=== PATIENT | male | born 1950 | race Caucasian/White ===

== ENCOUNTER → 2021-03-21 17:17 | Outpatient (CLI) | payer OTHER, SELFPAY | PROVIDERS: Visit Provider Nurse Practitioner | DX: U07.1 COVID-19 (principal) | CPT/HCPCS: C9803; U0003; U0005 ==

== ENCOUNTER → 2021-03-26 08:52 | Outpatient (CLI) | payer OTHER, SELFPAY ==
[2021-03-26] VITALS (9 sets, daily range): BP systolic 108–130; BP diastolic 59–73; PULSE 56–68; RESP 18; O2SAT 94–98
== END ==
PROVIDERS: Visit Provider Internal Medicine
DX: U07.1 COVID-19 (principal); Z23 Encounter for immunization
CPT/HCPCS: 96365

== ENCOUNTER 2024-11-30 12:54 | Outpatient (CLI) | payer MEDICARE, BC, SELFPAY ==
--- OUTSIDE RECORDS SUMMARY | 2024-10-20 13:00 | XMS_ITS | Encounter Summary ---
Author Organization [employer] ([place], [place], [place], [place]) Address [address] [place] [address] Care Team Providers Care Commercial Finance Manager Name Role Phone Unavailable Primary Care Provider Unavailabl e Reason for Visit * Speech Therapy (Routine) - Authorized Specialty Diagnoses / Procedures Referred By Contac t Referred To Contact Speech Pathology / Speech Therapy Diagnoses Post concussion syndrome Ivette Palacios, DO [address] [place], [place] [id number] Phone: tel: fax: Katy Dale, CCC-STAFFING ASSOCIATE Referral ID Status Reason Start Date Expiration Date V isits Requested Visits Authorized [id number] Authorized 08/31/2024 09/11/2025 99 99 Encounter Details Date Type Department Care Team (Late st Contact Info) Description 10/20/2024 1:00 PM EDT Treatment [facility] Speech Language Pathology - [facility] [address] [place] [address] [phone] Ivette Palacios, DO [address] [place] [address] Katy Dale, CCC-STAFFING ASSOCIATE Post concussion syndrome Social History Tobacco Use Types Packs/Day Years Used Date Smoking Tobacco: Never Assessed Food Insecurity Answer Date Recorded Food run out past 12 months Not on file 06/29 Food did not last past 12 months Not on file 07/21/2023 Employment Answer Date Recorded Help finding and keeping a job Not on file 0 07/21/2023 Family and Community Support Answer Ravin e Recorded Help with Day to Day Activities Not on file 07/21/2023 Feeling Lonely or Isolated Not on file 07/20 Educational Attainment Answer Date Eder rded Speak language other than Uzbek at home Not on file 07/21/2023 Want help with school or training Not on file 07/21/2023 Substance Use Answer Date Recorded Used prescription meds for non-medical reasons N ot on file 07/21/2023 Used illegal drugs past 12 months Not on file 07/21/2023 Sex and Gender Information Value Date Recorded Sex Assigned at Not on file Legal Sex Male 10:54 AM CDT Gender Identity Not on file Sexual Orientation Not on file documented as of this encounter Progress Notes * Katy Dale CCC-STAFFING ASSOCIATE - 10/20/2024 1:00 PM EDT Images from the original note were not included. Speech Therapy Progress Note Outpatient Daily Treatment Note Cognition Patient Name:Arturo Corbin Referring MD:Ivette Palacios,* Date of :1950 Age: 74 y.o. Today: 10/20/2024 Time in/out:[id number] Length of Treatment: 45 Treatment Session Number: Pain: 3 via 0-10 verbal Subjective Arrived late for appointment. Called to alert STAFFING ASSOCIATE he was running late. Continues to struggle with executive function/planning. Recently fell out of bed- unable to explain why/how this happened, Cognitive status: Alert and oriented Objective Skilled ST treatment provided to improve Cognition . The session plan was discussed with the patient and/or family (if the patient is unable to respond)and the patient and/or family agreed to the session. The following exercises were completed with the patient working towards short term goals: Therapeutic Activities Performed # correct # completed % Cues/Notes Working memory- 4 unrelated words [x] 8 10 80% Reverse/alphabetical 2. 5 words- reorder [x] 8 10 80% Slow to warm up 3. Working memory [x] 10 10 100% Minimal cues 4. Visual sequencing [x] Abandoned due to time constraints [] [] [] [] [] [] [] Comments: Multiple episodes of tangential and verbose speech- redirected but multiple cues requiredto redirect Assessment The following goals were addressed/assessed during the therapy session today: Pt Goals:Pt's goal is to be able to converse with people which is needed for work [employer] Goals: 1.Patient will improve functional, nddqdnhox-kvczcrgrce-iudvu skills and utilize compensatory strategies to communicate wants and needs effectively to different conversational partners, maintain safety and participate socially in functional living environment PROGRESSING 2.Patient will improve cognitive skills in order to maintain safety and participate socially in functional living environment PROGRESSING Short Term Goals: For development and improvement in communication/cognition skills for ADL's, social interactions and employment. Short Term Goals: Not addressed Partially Met Not Met Met Goals % accuracy Cues/Notes [] [x] [] [] Complete working memory tasks with 90% with/without compensatory strategies. 90% Multiple tasks- minimal cues- 1 more session- 6 word sentences and 4 unrelated word reorder [x] [] [] [] Complete alternating/divided attention tasks with 90% [] [x] [] [] Complete sustained attention tasks x 3-5 minutes without redirection with 90% Sustained at the start x 3 minutes but as the 6session continued, increased cues required to keep pt on taskand decrease verbosity/tangential speech used to delay/distract from the activity. [] [x] [] [] Complete mental flexibility tasks with 90% with/without compensatory strategies 86% [x] [] [] [] Complete abstract divergent word fluency tasks with 8-12 items in 1 minute with 90%. [] [x] [] [] Complete executive function tasks with/without compensatory strategies with 90% Discussion re: time management- pt endorses he has a history of running 10 minutes behind but admits he ishaving more difficulty with time management/planning/organization [] [x] [] [] Understanding of deficits and impact on social interactions Ongoing -pt continues to argue that he is unable to complete a variety of tasks- reminders re: preexisting, pre and post accident/head injury [] [x] [] [] Complete conversational task/respond to questions with an appropriate response length without unrelated/unnecessary information x 5 minutes. More difficulty with this task today- required multiple and frequent cues to stick with the topic [] [x] [] [] Demonstrate self monitoring of deficits/impairment with at least an attempt to self correct Awareness only after STAFFING ASSOCIATE repeatedly pointed out that pt's conversation was unrelated to the initial topic [x] [] [] [] Probe Reading/Writing Writing: Formulate and write an opinion statement succinctly and accurately with 85%. Pt endorses impaired writing- legible writing, however slow to write formulated ideas-similar to verbal language. [] [x] [] [] Develop and instruct re: appropriate home exercises Ongoing Summary: Increased tangential and verbose speech today- multiple cues to focus/redirect pt. Pt likes to talk about things he once did easily but struggles to grasp the impact of the head injury on his performance completing therapy tasks. He continues to struggle with fatigue. He reports he slept 2days after his last appointment before recovering. Time concepts/executive function/planning remains severely impaired- it is likely pt struggled with time management before the injury, however currently it is problematic as it impacts appointments. Progress towards goals: Continue therapy per plan Education: Ongoing instruction re: the impact of the head injury/benefits of therapy/need for rest/home exercises. Concomitant Factors: other- Visual impairment/impact of fatigue Response to Treatment: Patient tolerated therapy/intervention well with no complications, complaints or adverse events. Plan Continue treatment per plan of care. Therapy Frequency: 1x weekly as schedule allows Plan of Care Certification Date: 08/31/2024 - 12/01/2024 with varying frequency based on patient progress. STAFFING ASSOCIATE Discharge Planning: ongoing speech language pathology services are indicated for cognitive communication deficits This will serve as a discharge statement if patient is discharged before further visits. Electronically signed by Katy Dale MA CCC-STAFFING ASSOCIATE- 10/20/2024 - 1422 PM EST documented in this encounter Plan of Treatment Upcoming Encounters Date Type Department Care Team (Late st Contact Info) Description 12/01/2024 2:00 PM EDT Treatment [facility] Speech Language Pathology - [facility] [address] [place] [phone] Ivette Palacios, DO [address] [place] [address] Katy Dale CCC-STAFFING ASSOCIATE documented as of this encounter Visit Diagnoses Diagnosis Post concussion syndrome Postconcussion syndrome documented in this encounter
--- OUTSIDE RECORDS SUMMARY | 2024-10-26 15:00 | XMS_ITS | Encounter Summary ---
Author Organization [employer] ([place], [place], [place], [place]) Address [address] [place] [address] Care Team Providers Care Bread Room Hand Name Role Phone Unavailable Primary Care Provider Unavailabl e Reason for Visit * Speech Therapy (Routine) - Authorized Specialty Diagnoses / Procedures Referred By Contac t Referred To Contact Speech Pathology / Speech Therapy Diagnoses Post concussion syndrome Ivette Palacios, DO [address] [place] [phone] Phone: tel: fax: Katy Dale, CCC-CLINIC LICENSED PRACTICAL NURSE Referral ID Status Reason Start Date Expiration Date V isits Requested Visits Authorized [id number] Authorized 08/31/2024 09/11/2025 99 [phone] Encounter Details Date Type Department Care Team (Late st Contact Info) Description 10/26/2024 3:00 PM EDT Treatment [facility] Speech Language Pathology - [facility] [address] [place] [address] [phone] Ivette Palacios, DO [facility] [place] [address] Katy Dale, CCC-CLINIC LICENSED PRACTICAL NURSE Cognitive communication deficit (Primary Dx); Post concussion syndrome; Attention and concentration deficit Social History Tobacco Use Types Packs/Day Years [...] Date Eder rded Speak language other than Albanian at home Not on file 07/21/2023 Want [...] of this encounter Progress Notes * Katy Dale, THOMAS-CLINIC LICENSED PRACTICAL NURSE - 10/26/2024 3:00 PM EDT Images from the original note were not included. Speech Therapy Progress Note Outpatient Daily Treatment Note Cognition Patient Name:Arturo Corbin Referring MD:Ivette Palacios,* Date of :1950 Age: 74 y.o. Today: 10/26/2024 Time in/out:[id number] Length of Treatment: 70 Treatment Session Number: Pain: 0 via 0-10 verbal Subjective accompanied pt to therapy for the first time. Cognitive status: Alert and oriented Objective Skilled ST treatment provided to improve Cognition . The session plan was discussed with the patient and/or family (if the patient is unable to respond)and the patient and/or family agreed to the session. The following exercises were completed with the patient working towards short term goals: Therapeutic Activities Performed # correct # completed % Cues/Notes Discussion re: sleep pattern/fatigue [x] 2. Complex attention/mental flexibility with counting [x] 75% first time with intermittent cues [id number] 2nd time with direction re: the pattern prior to starting the task but no cues during the task. 3. Complex cards 4 rules [x] 80% Timed- target 2 minutes- did not meet time target 3:15 4. Complex card- 2 rules [x] 80% Untimed 3: 30 5. Executive planning. [x] Struggled to work through how to check accuracy of a task- eventually able to do so 6. Discussion re: appropriate vs. Inappropriate content [x] PT argumentative re: whether he feels he can say what he thinks despite the words being offensive. present and in agreement with me based on facial expressions [] [] [] [] [] Comments: Redirected multiple times during the visit to get back to the task at hand. Discussed impaired attention, discussed the impact of poor sleep, discussed brain fatigue and the need to get regular/scheduled rest, and finally discussed inappropriate language and the impact of statements that may be deemed offensive. Assessment The following goals were addressed/assessed during the therapy session today: Pt Goals:Pt's goal is to be able to converse with people which is needed for work [employer] Goals: 1.Patient will improve functional, scqhbzmex-lcvfarakjk-ohhmu skills and utilize compensatory strategies to communicate [...] Not Met Met Goals % accuracy Cues/Notes [x] [] [] [] Complete working memory tasks with 90% with/without compensatory strategies. 90% Not addressed today [] [x] [] [] Complete alternating/divided attention tasks with 90% 83% [] [x] [] [] Complete sustained attention tasks x 3-5 minutes without redirection with 90% Card tasks took over 3 minutes with pt able to attend. With a specific sustained/alternating attention task,pt successfully attended x 2 minutes one of two trials. [] [x] [] [] Complete mental flexibility tasks with 90% with/without compensatory strategies 87% [x] [] [] [] Complete abstract divergent word fluency tasks with 8-12 items in 1 minute with 90%. [] [x] [] [] Complete executive function tasks with/without compensatory strategies with 90% Discussion re: time management-planning, organization, conversation with to coordinate a plan [] [x] [] [] Understanding of deficits and impact on social interactions Ongoing - [] [x] [] [] Complete conversational task/respond to questions with an appropriate response length without unrelated/unnecessary information x 5 minutes. More difficulty with this task today- required multiple cues to return to the topic/task [] [x] [] [] Demonstrate self monitoring of deficits/impairment with at least an attempt to self correct Self monitoring with and without success- argumentative re: errors and pt's perceived reason or justification for errors. [x] [] [] [] Probe Reading/Writing Writing: Formulate and write an opinion statement succinctly and accurately with 85%. Pt endorses impaired writing- legible writing, however slow to write formulated ideas-similar to verbal language. [] [x] [] [] Develop and instruct re: appropriate home exercises Ongoing Summary: Impaired attention impacts performance across all tasks. confirmed today pt with baseline attention impairment which is now exacerbated. In addition, she confirms impaired executive function-planing/organization/time management prior to the head injury but now worse. Pt arrived on time for his appointment today - first time, unfortunately likely due to accompanying him and not due to pt's own devices. Much time spent rehashing deficits, mental fatigue, visual impairment, and difference between now and prior level of function. Progress towards goals: Continue therapy per plan Education: Ongoing instruction re: the impact of the head injury/benefits of therapy/need for rest/home exercises. Concomitant Factors: other- Visual impairment/impact of fatigue Response to Treatment: Patient tolerated therapy/intervention well with no complications, complaints or adverse events. Plan Continue treatment per plan of care. Set a time at the start giving pt time to bring to the table ideas he wants to discuss. The next 45 minutes will focus on CLINIC LICENSED PRACTICAL NURSE plan. Pt will then be allowed 5-10 minutes at the end to schedule next appt and discuss concerns. Therapy Frequency: 1x weekly as schedule allows Plan of Care Certification Date: 08/31/2024 - 12/01/2024 with varying frequency based on patient progress. CLINIC LICENSED PRACTICAL NURSE Discharge Planning: ongoing speech language pathology services are indicated for cognitive communication deficits This will serve as a discharge statement if patient is discharged before further visits. Electronically signed by Katy Dale MA CCC-CLINIC LICENSED PRACTICAL NURSE- 10/26/2024 - 1624 PM EST documented in this encounter Plan of Treatment Upcoming Encounters Date Type Department Care Team (Late st Contact Info) Description 12/01/2024 2:00 PM EDT Treatment [facility] Speech Language Pathology - [facility] [address] [place] [phone] Ivette Palacios, DO [address] [place] [address] Katy Dale, THOMAS-CLINIC LICENSED PRACTICAL NURSE documented as of this encounter Visit Diagnoses Diagnosis Cognitive communication deficit- Primary Post concussion syndrome Postconcussion syndrome Attention and concentration deficit documented in this encounter
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
--- OUTSIDE RECORDS SUMMARY | 2024-11-02 15:00 | XMS_ITS | Encounter Summary ---
Author Organization [facility] ([place], [place], [place], [place]) Address [address] [place] [address] Care Team Providers Care Certified Alcohol And Drug Counselor Name Role Phone Unavailable Primary Care Provider Unavailabl e Reason for Visit * Speech Therapy (Routine) - Authorized Specialty Diagnoses / Procedures Referred By Contac t Referred To Contact Speech Pathology / Speech Therapy Diagnoses Post concussion syndrome Ivette Palacios, DO [address] [place], [place] [address] Phone: tel: fax: Katy Dale, CCC-ASSET PROTECTION OFFICER Referral ID Status Reason Start Date Expiration Date V isits Requested Visits Authorized [id number] Authorized 08/31/2024 09/11/2025 99 99 Encounter Details Date Type Department Care Team (Late st Contact Info) Description 11/02/2024 3:00 PM EDT Treatment [facility] Speech Language Pathology - [facility] [address] [place] [phone] Ivette Palacios, DO [facility] [place] [address] Katy Dale, CCC-ASSET PROTECTION OFFICER Cognitive communication deficit (Primary Dx); Attention and concentration deficit; Post concussion syndrome Social History Tobacco Use [...] this encounter Progress Notes * Katy Dale, THOMAS-ASSET PROTECTION OFFICER - 11/02/2024 3:00 PM EDT Images from the original note were not included. Speech Therapy Treatment Note Outpatient Daily Treatment Note Cognition Patient Name:Arturo Corbin Referring MD:Ivette Palacios,* Date of :1950 Age: 74 y.o. Today: 11/02/2024 Time in/out:[id number] Length of Treatment: 70 Treatment Session Number: Pain: Unable to rate pain via 0-10 verbal -Upset re: interaction with [facility] Subjective Arrived early for appointment despite not present. Pt reports he has been fired from /[facility]. Cognitive status: Alert and oriented Objective Skilled ST treatment provided to improve Cognition . The session plan was discussed with the patient and/or family (if the patient is unable to respond)and the patient and/or family agreed to the session. The following exercises were completed with the patient working towards short term goals: Therapeutic Activities Performed # correct # completed % Cues/Notes Discussion re: time pt allowed to ask questions/provide details re: recent events [x] Discussed plan to limit time spent on other topics - time will be limited to 5 minutes at the beginning and 10 minutes at the end of the session- in between, ASSET PROTECTION OFFICER will move pt from task to task. 2. Complex attention-mental flexibility [x] 95% Letter calculation forward and backward x 31/2 minutes 3. Mental flexibility- word order 4 words [x] 5 5 100% Reverse 4. Word Fluency [x] 5 10 50% 30 seconds- 6 items per abstract category 5. 4 unrelated words- mental flexibility [x] 9 10 90% Reverse/alphabetical 6. Writing task [x] 100% Provided two words- required to create a sentence 7. Reading task [x] 85% Read 4-5 paragraphs- summarize in writing - more than an single word but okto be brief and limit to a few sentences. [] [] [] [] Comments: Able to stay on task with time constraint requirements- 5 minutes at the start- 10 minutes at the end. Assessment The following goals were addressed/assessed during the therapy session today: Pt Goals:Pt's goal is to be able to converse with people which is needed for work [facility] Goals: 1.Patient will improve functional, svmfjebmi-zmlzcdzfsw-rkpia skills and utilize compensatory strategies to communicate [...] [] Complete alternating/divided attention tasks with 90% 95% [] [x] [] [] Complete sustained attention tasks x 3-5 minutes without redirection with 90% 95% X 3 1/2 minutes [] [x] [] [] Complete mental flexibility tasks with 90% with/without compensatory strategies 80% [x] [] [] [] Complete abstract divergent word fluency tasks with 5- items in 30 seconds-1 minute with 90%. 50% Difficulty coming up with 5-6 items within 30 seconds [] [x] [] [] Complete executive function tasks with/without compensatory strategies with 90% Arrived at appointment early- reports he would have consistently arrived early if he realized that was necessary-- [] [x] [] [] Understanding of deficits and impact on social interactions Ongoing -Came in today asking ASSET PROTECTION OFFICER if she voted for a particular candidate- pt was trying to show that he is not racist- last session, he referred to racial slurs he made that he did not feel were problematic because he believed them to be factual- Some awareness today of topics to avoid but not fully. [] [x] [] [] Complete conversational task/respond to questions with an appropriate response length without unrelated/unnecessary information x 5 minutes.- Pragmatic- appropriate speech- recognition of environmental cues Time limit placed at the beginning and end of the session was beneficial. However, pt continued to bring up topics after the session was over despite ASSET PROTECTION OFFICER ending the session. [] [x] [] [] Demonstrate self monitoring of deficits/impairment with at least an attempt to self correct Self monitoring with and without success- argumentative re: errors and pt's perceived reason or justification for errors. [] [] [] [x] Probe Reading/Writing Writing: Formulate and write an opinion statement succinctly and accurately with 85%. Reading: Provided a 4-5 paragraph to read and provided explanation that pt required to write a summary of the paragraph- more than one word but could be limited to a few sentences. Functional Writtensentence formulation with 2 target words: 100%- speedily constructed sentences with target. Legible- no spelling errors. Read multiple paragraphs and summarized with 85% [] [x] [] [] Develop and instruct re: appropriate home exercises Ongoing Summary: Improved attention- sustained/alternating. Improved mental flexibility. Reading and writing are functional but I agree pt may struggle when sustained attention required. Pt continues to report brain fatigue- exhaustion after stressful days/treatment with pt requiring a day or more to recover. He is seeking help re: PT/OT services since he was fired by /[facility]. I believe he has an orderthat he can use anywhere but I will work with pt to verify. On time for appointment but interruptedSLP treatment session with another pt to make sure I was aware he was early-unaware/oblivious as towhy this interaction was inappropriate. ASSET PROTECTION OFFICER to continue to address pragmatics. Progress towards goals: Continue therapy per plan [...] with varying frequency based on patient progress. ASSET PROTECTION OFFICER Discharge Planning: ongoing speech language pathology services are indicated for cognitive communication deficits This will serve as a discharge statement if patient is discharged before further visits. Electronically signed by Katy Dale MA CCC-ASSET PROTECTION OFFICER- 11/02/2024 - 1611 PM EST documented in this encounter Plan of Treatment Upcoming Encounters Date Type Department Care Team (Late st Contact Info) Description 12/01/2024 2:00 PM EDT Treatment [facility] Speech Language Pathology - [place] [address] [place] [address] Ivette Palacios, DO [address] [place] [address] Katy Dale CCC-ASSET PROTECTION OFFICER documented as of this encounter Visit Diagnoses Diagnosis Cognitive communication deficit- Primary Attention and concentration deficit Post concussion syndrome Postconcussion syndrome documented in this encounter
--- OUTSIDE RECORDS SUMMARY | 2024-11-09 12:00 | XMS_ITS | Encounter Summary ---
Author Organization [employer] ([place], [place], [place], [place]) Address [address] [place] [address] Care Team Providers Care Fiberglass Quality Technician Name Role Phone Unavailable Primary Care Provider Unavailabl e Reason for Visit * Speech Therapy (Routine) - Authorized Specialty Diagnoses / Procedures Referred By Contac t Referred To Contact Speech Pathology / Speech Therapy Diagnoses Post concussion syndrome Ivette Palacios, DO [address] [place] [address] Phone: tel: fax: Katy Dale, CCC-CUSTOMER SERVICE AGENT Referral ID Status Reason Start Date Expiration Date V isits Requested Visits Authorized [id number] Authorized 08/31/2024 09/11/2025 99 99 Encounter Details Date Type Department Care Team (Late st Contact Info) Description 11/09/2024 12:00 PM EDT Treatment [facility] Speech Language Pathology - [facility] [address] [place] [address] [phone] Ivette Palacios, DO [facility] [place] [address] Katy Dale, CCC-CUSTOMER SERVICE AGENT Cognitive communication deficit (Primary Dx); Attention and [...] Date Eder rded Speak language other than Indonesian at home Not on file 07/21/2023 Want [...] this encounter Progress Notes * Katy Dale, THOMAS-CUSTOMER SERVICE AGENT - 11/09/2024 12:00 PM EDT Images from the original note were not included. Speech Therapy Treatment Note Outpatient Daily Treatment Note Cognition Patient Name:Arturo Corbin Referring MD:Ivette Palacios,* Date of :1950 Age: 74 y.o. Today: 11/09/2024 Time in/out:[id number] Length of Treatment: 40 Treatment Session Number: Pain: Pt reports he is almost always in some sort of pain- 4 0-10 verbal - Dysfunctional pain-still upset re: /[facility] Subjective Arrived late for treatment session- called to inform CUSTOMER SERVICE AGENT he was running late- CUSTOMER SERVICE AGENT unable to see pt longer than appointed time slot due to other appointments. Came in disheveled- belt not in loops or buckled. Coffee or drink spilled on shirt. Cognitive status: Alert and oriented Objective Skilled [...] ask questions/provide details re: recent events [x] Reviewed plan- 5 minutes at the start and 10 minutes at the end Unable to limit talking at the start of the session. 2. Word order- reverse/alphabetical- 4 words [x] Not addressed due to time constraints 3. Read material and provide verbal summary [x] With cues: Difficult to stay on task 4. Read material and provide 1 written statement [x] Written statement- 1 sentence- lengthy sentence- did not comply with directions; added a rule for the sentence to be less than 12 words. [] [] [] [] [] [] [] Comments: Tangential which impacts powder press operator ability to keep pt on track with therapy goals Assessment The following goals were addressed/assessed during the therapy session today: Pt Goals:Pt's goal is to be able to converse with people which is needed for work Director Of Intelligence Goals: 1.Patient will improve functional, ydsfwryfa-bggxqypzrf-myyjx skills and utilize compensatory strategies to communicate [...] with/without compensatory strategies. 90% Not addressed today [x] [] [] [] Complete alternating/divided attention tasks with 90% 95% Not addressed today [x] [] [] [] Complete sustained attention tasks x 3-5 minutes without redirection with 90% 95% Not addressed today [x] [] [] [] Complete mental flexibility tasks with 90% with/without compensatory strategies 80% Not addressed today [x] [] [] [] Complete abstract divergent word fluency tasks with 5- items in 30 seconds-1 minute with 90%. 50% Difficulty coming up with 5-6 items within 30 seconds-Not addressed today [] [x] [] [] Complete executive function tasks with/without compensatory strategies with 90% Arrived late for appointment- admitted he was distracted by a television program that he knew he could watch later- he thought would come with him and drive but she did not- discussed with pt again- planning, prioritizing, and conversation with ahead of time [x] [] [] [] Understanding of deficits and impact on social interactions Appropriate content throughout session- pt verbalized there was something he wanted to add but he would not do so due to powder press operator presence. [] [x] [] [] Complete conversational task/respond to questions with an appropriate response length without unrelated/unnecessary information x 5 minutes.- Pragmatic- appropriate speech- recognition of environmental cues This was not successful today- in part due to pt's late arrival. He did leave on time when CUSTOMER SERVICE AGENT explained she needed to end session due to another patient- pt promptly left the treatment office today which is an improvement. [] [x] [] [] Demonstrate self monitoring of deficits/impairment with at least an attempt to self correct Ongoing discussion/education/instruction re: status/impairment/impact of impairment on life today [] [x] [] [] Verbally summarize details of an article re: attention/cognition including salient information with 85% Written succinct summary of an article re: attention/cognition with each sentence/summary statementless than 12 words. Written expression beyond 12 words every time. Verbal summary of the details was incomplete and resulted in tangential speech- difficult to redirect but it was possible today [] [x] [] [] Develop and instruct re: appropriate home exercises Ongoing Summary: Pt insight into deficits is poor. He recognizes a change or that he is not who he was but not the impact of current state on who he is/how he presents himself. He has unrealistic expectations. He fails to recognize his role in situations that are not going as he expects or wants them to go. Continues to get poor sleep- stays up late and gets poor rest before treatment. He verbalizes thathe takes breaks but based on information he provides, he is not implementing recommendations re: rest breaks/sleep. Progress towards goals: Continue therapy per plan [...] with varying frequency based on patient progress. CUSTOMER SERVICE AGENT Discharge Planning: ongoing speech language pathology services are indicated for cognitive communication deficits This will serve as a discharge statement if patient is discharged before further visits. Electronically signed by Katy Dale MA [facility]-CUSTOMER SERVICE AGENT- 11/09/2024 - 1533 PM EST documented in this encounter Plan of Treatment Upcoming Encounters Date Type Department Care Team (Late st Contact Info) Description 12/01/2024 2:00 PM EDT Treatment [facility] Speech Language Pathology - [facility] [address] [phone] Ivette Palacios, DO [address] [place] [address] Katy Dale CCC-CUSTOMER SERVICE AGENT documented as of this encounter Visit Diagnoses Diagnosis Cognitive communication deficit- Primary Attention and concentration deficit Post concussion syndrome Postconcussion syndrome documented in this encounter
--- OUTSIDE RECORDS SUMMARY | 2024-11-14 14:00 | XMS_ITS | Encounter Summary ---
Author Organization [employer] ([place], [place], [place], [place]) Address [address] [place] [address] Care Team Providers Care Development And Housing Director Name Role Phone Unavailable Primary Care Provider Unavailabl e Reason for Visit * Speech Therapy (Routine) - Authorized Specialty Diagnoses / Procedures Referred By Contac t Referred To Contact Speech Pathology / Speech Therapy Diagnoses Post concussion syndrome Ivette Palacios, DO [address] [place] [address] Phone: tel: fax: Katy Dale, CCC-REHABILITATION DIRECTOR Referral ID Status Reason Start Date Expiration Date V isits Requested Visits Authorized [id number] Authorized 08/31/2024 09/11/2025 99 99 Encounter Details Date Type Department Care Team (Late st Contact Info) Description 11/14/2024 2:00 PM EDT Treatment [facility] Speech Language Pathology - [facility] [address] [place] [address] [phone] Ivette Palacios, DO [facility] [place] [address] Katy Dale, CCC-REHABILITATION DIRECTOR Cognitive communication deficit (Primary Dx); Attention and [...] Date Eder rded Speak language other than Latvian at home Not on file 07/21/2023 Want [...] this encounter Progress Notes * Katy Dale CCC-REHABILITATION DIRECTOR - 11/14/2024 2:00 PM EDT Images from the original note were not included. Speech Therapy Treatment Note Outpatient Daily Treatment Note Cognition Patient Name:Arturo Corbin Referring MD:Ivette Palacios,* Date of :1950 Age: 74 y.o. Today: 11/14/2024 Time in/out:[id number] Length of Treatment: 55 Treatment Session Number: 09/06 Pain: Pt reports he is almost always in some sort of pain- 4 0-10 verbal -Still worried about [facility] re: concussion recovery Subjective No c/o-pt endorses he is happy if he only has 1 good hour per day- he would like to continue to recover, however he is ok if he does not improve- I have lived a good . Switching glasses- pt brought in multiple pairs- 4/5 and is switching between them to help with his vision. Brought in exercises related to vision - he is not completing them but he cannot figure out if they are needed/important- He is also reporting he was discharged from therapy at [facility] for not doing his exercises ratheronly that he would be discharged if he did not make progress. REHABILITATION DIRECTOR explained vision therapy or the [facility] statements have nothing to do with me or this therapy. Reports he was able to shower and left the house at an appropriate time. Cognitive status: Alert and oriented Objective Skilled ST treatment provided to improve Cognition . The session plan was discussed with the patient and/or family (if the patient is unable to respond)and the patient and/or family agreed to the session. The following exercises were completed with the patient working towards short term goals: Therapeutic Activities Performed # correct # completed % Cues/Notes Mental flexibility with cards- complex/simple- agitating attention [x] 85% Intermittent verbal cues- switch every 20 seconds -Intermittent verbal cues Alternating attention [x] Sustained attention [x] Abstract divergent-5 items [x] 4 10 40% Created homework program [x] Pt asked to change the homework as he had an idea that he preferred- Isuggested he spend time on the idea he created and the ideas I provided-both dealing with succinct writing [] [] [] [] [] [] Comments: Difficulty getting pt to focus on therapy task today Assessment The following goals were addressed/assessed during the therapy session today: Pt Goals:Pt's goal is to be able to converse with people which is needed for work Intermediate Goals: 1.Patient will improve functional, rhrpnhbka-lnecojxxti-ecpck skills and utilize compensatory strategies to communicate [...] tasks with 90% with/without compensatory strategies. 90% [] [x] [] [] Complete alternating/divided attention tasks with 90% 85% Agitating attention task required intermittent cues [] [x] [] [] Complete sustained attention tasks x 3-5 minutes without redirection with 90% 80% Mildto moderate cues x 1 minute [] [x] [] [] Complete mental flexibility tasks with 90% with/without compensatory strategies 85% [] [x] [] [] Complete abstract divergent word fluency tasks with 5- items in 30 seconds-1 minute with 90%. 40% 30 seconds- 5 items per abstract category [] [x] [] [] Complete executive function tasks with/without compensatory strategies with 90% Discussed relative to timing, use of schedule book vs. Phone calendar- pt brought a vacation planner - stated he had multiple planners- REHABILITATION DIRECTOR encouraged use of only 1 vacation planner and discussed reasons- pt then stated he pr eferred to use his phone- he then wrote his appointment in his vacation planner. [] [x] [] [] Understanding of deficits and impact on social interactions Requested feedback re: home exercises given to him by another discipline- REHABILITATION DIRECTOR explained I cannot comment on whether the exercises are still relevant as I don't know why they were recommended AND it is beyond my scope of practice. [] [x] [] [] Complete conversational task/respond to questions with an appropriate response length without unrelated/unnecessary information x 5 minutes.- Pragmatic- appropriate speech- recognition of environmental cues Excessive time spent with pt complaining about previous therapy- firing and not taking him back despite pt report that he was not told that he would be fired if he did not comply with homework. [x] [] [] [] Demonstrate self monitoring of deficits/impairment with at least an attempt to self correct [x] [] [] [] Verbally summarize details of an article re: attention/cognition including salient information with 85% Written succinct summary of an article re: attention/cognition with each sentence/summary statementless than 12 words. Not addressed [] [x] [] [] Develop and instruct re: appropriate home exercises Ongoing Summary: Continued hyperfocus on the issues he has with /[facility]. Endorses he is pleased with progress he is making in speech therapy. Provided multiple examples of how he is working on time/planning/organization- he arrived only a few minutes late for treatment today and did NOT call me to tell me schedule for arrival. Attention/tangential thought/reduced self monitoring remain problematic. At times, he is able ot provide verbiage to indicate understanding of REHABILITATION DIRECTOR concerns re: cognition, howeverhe is unable to consistently correlate ideas to himself and his situation. Progress towards goals: Continue therapy per plan [...] with varying frequency based on patient progress. REHABILITATION DIRECTOR Discharge Planning: ongoing speech language pathology services are indicated for cognitive communication deficits This will serve as a discharge statement if patient is discharged before further visits. Electronically signed by Katy Dale MA CCC-REHABILITATION DIRECTOR- 11/14/2024 - 1630 PM EST documented in this encounter Plan of Treatment Upcoming Encounters Date Type Department Care Team (Late st Contact Info) Description 12/01/2024 2:00 PM EDT Treatment [facility] Speech Language Pathology - [facility] [address] [place] [phone] Ivette Palacios, DO [address] [place] [address] Katy Dale, THOMAS-REHABILITATION DIRECTOR documented as of this encounter Visit Diagnoses Diagnosis Cognitive communication deficit- Primary Attention and concentration deficit Post concussion syndrome Postconcussion syndrome documented in this encounter
--- OUTSIDE RECORDS SUMMARY | 2024-11-30 13:09 | XMS_ITS | Encounter Summary ---
Author Organization [facility] Address [address] [place] [address] Care Team Providers Care Dehydrogenation Operator Name Role Phone Mike Otoole MD Primary Care Provider [phone] Encounter Details Date Type Department Care Team (Latest Contact Info) Description 11/02/2024 Travel Social History Tobacco Use Types Packs/Day Years Used Date Smoking Tobacco: Never Passive Smoke Exposure: Never Smokeless Tobacco: Never Alcohol Use Standard Drinks/Week Comments Yes 0 [...] on file documented as of this encounter Functional Status * Over the [...] difficult at all 11/02/2024 1:35 PM EDT Garfield Howard LPN * Question Answer Date of Assessment Author 1. Wish to be (Past 1 Month) No 11/02/2024 1:35 PM EDT Greta Howard LPN 2. Non-Specific Active Suicidal Thoughts (Past 1 Month) No 11/02/2024 1:35 PM EDT Greta Howard LPN 6. Suicidal Behavior (Lifetime) No 11/02/2024 1:35 PM EDT Greta Howard LPN documented as of this encounter Plan of Treatment Upcoming Encounters Date Type Department Care Team (Late st Contact Info) Description 02/27/2025 10:45 AM EST Office Visit [facility] [address] [place] [address] Ny Alfaro MD [address] [address] documented as of this encounter Visit Diagnoses Not on filedocumented in this encounter Additional Health Concerns Assessment Noted Time PHQ-9 Depression Total Score: 0 02/09/20 24 11:55 AM EST A fall risk assessment has been complete d for the patient 11/02/2024 1:35 PM EDT A Body Mass Index follow-up plan has been documented for the patient 11/15/2024 1:14 PM EDT documented as of this encounter Care Teams Dehydrogenation Operator Relationship Specialty Start Date End Date Mike Otoole [facility] [place] [address] PCP - General 06/25/23 documented as of this encounter
--- OUTSIDE RECORDS SUMMARY | 2024-11-30 13:09 | XMS_ITS | Encounter Summary ---
Author Organization [facility] Address [address] [place] [address] Care Team Providers Care Roll Edge Machine Operator Name Role Phone Mike Otoole MD Primary Care Provider [phone] Reason for Visit * Reason Onset Date Comments HCN Clinical Concern/Question 10/10/2024 Encounter Details Date Type Department Care Team (Late st Contact Info) Description 10/10/2024 Telephone [facility] [address] [place] [address] Ny Alfaro MD [address] [address] HCN Clinical Concern/Question Social History Tobacco Use Types Packs/Day Years Used Date Smoking Tobacco: Never Passive Smoke Exposure: Never Smokeless Tobacco: Never Alcohol Use Standard Drinks/Week Comments Yes 0 (1 standard drink = 0.6 oz pure alcohol) Alcoholic Drinks/day: Occasional alcohol use PHQ-2 Answer Date Recorded Patient Health Questionnaire-2 Score 0 08/23/2024 PHQ-9 Answer Date Recorded Patient Health Questionnaire-9 Score 0 02/09/2024 PHQ-2A Answer Date Recorded Depression Risk 0 01/01/2024 Sex and Gender Information Value Date Recorded Sex Assigned at Not on file Legal Sex Male 8:15 PM EDT Gender Identity Not on file Sexual Orientation Not on file documented as of this encounter Miscellaneous Notes * Telephone Encounter - Dolly Suazo - 10/11/2024 9:19 AM EDT Records faxed this morning. * Telephone Encounter - Marie Palacios - 10/10/2024 1:21 PM EDT Clinical Concern/Question Reason for Call: Patient states that Dr Ny Alfaro referred him to see Dr Ferrera. States they are needing his records. FAX: [phone] Best contact number: [phone] (home) Optimal time of day to reach caller: ANYTIME Additional comments/information from caller: None Note: Please do not reply to this message. Follow-up communication and further actions as a result of this message need to be communicated with the patient directly, if the patient is not active onMyChart. If the patient is active on MyChart, they will receive notification of the communication/outcome via [employer]. documented in this encounter Plan of Treatment Upcoming Encounters Date Type Department Care Team (Late st Contact Info) Description 02/27/2025 10:45 AM EST Office Visit [facility] [address] [place] [address] Ny Alfaro MD [address] [phone] documented as of this encounter Visit Diagnoses Not on filedocumented in this encounter Additional Health Concerns Assessment Noted Time PHQ-9 Depression Total Score: 0 02/09/20 11:55 AM EST A fall risk assessment has been complete d for the patient 08/23/2024 11:31 AM EDT A Body Mass Index follow-up plan has been documented for the patient 08/23/2024 12:15 PM EDT documented as of this encounter Care Teams Roll Edge Machine Operator Relationship Specialty Start Date End Date Mike Otoole MD [address] [place] [address] PCP - General 06/25/23 documented as of this encounter
--- OUTSIDE RECORDS SUMMARY | 2024-11-30 13:09 | XMS_ITS | Clinical Summary ---
Author Organization [facility] Address [address] [place] [address] Care Team Providers Care Oracle Application Architect Name Role Phone Mike Otoole MD Primary Care Provider [phone] Allergies No known active allergies Medications sildenafil (REVATIO) 20 MG tablet take 1 tablet by mouth three times daily As Needed for sexual activity 03/31/2022 Active famotidine (PEPCID) 10 MG tablet Take 1 tablet by mouth 2 (Two) Times a Day. Active Active Problems Problem Noted Date Diagnosed Date Acquired hallux rigidus of right foot 03/29/2018 Plantar fasciitis 03/29/2018 Achilles tendinitis of left lower extremity 03/01 Family History Medical History Relation Name Comments Cancer Mother Relation Name Status Comments Mother Social History Tobacco Use Types Packs/Day Years Used Date Smoking Tobacco: Never Smokeless Tobacco: Never Tobacco Cessation:Counseling Given: Not Answered Alcohol Use Standard Drinks/Week Comments No 0 (1 standard drink = 0.6 oz pur e alcohol) AUDIT-C Answer Date Recorded Q1: How often do you have a drink containing alc ohol? Never 05/02/2020 Average Number of Drinks Not on file 021 Frequency of Binge Drinking Not on file 05/2020 Sex and Gender Information Value Date Recorded Sex Assigned at Not on file Legal Sex Male 11:19 AM EDT Gender Identity Not on file Sexual Orientation Not on file Last Filed Vital Signs Vital Sign Reading Time Taken Comments Blood Pressure 142/98 06/27/2024 3:41 PM EDT Pulse 68 05/05/2023 9:45 PM EST Temperature 36.6 C (97.9 F) 05/05/2023 8:31 PM EST Respiratory Rate 16 05/05/2023 8:31 PM EST Oxygen Saturation 99% 05/05/2023 9:45 PM EST Inhaled Oxygen Concentration - - Weight 89.2 kg (196 lb 9.6 oz) 06/27/2024 3:41 P M EDT Height 172.1 cm (5' 7.76 ) 06/27/2024 3:41 PM ED T Body Mass Index 30.11 06/27/2024 3:41 PM EDT Plan of Treatment Upcoming Encounters Date Type Department Care Team (Late st Contact Info) Description 12/28/2024 3:30 PM EDT Office Visit [facility] [address] [address] Sarah Gonzalez MD [address] [address] Health Maintenance Due Date Last Done Comments COLOGUARD 01/22/1997 COLON CANCER SCREENING 5 YEA R SIGMOIDOSCOPY 01/22/1997 CT COLONOGRAPHY 01/22/1997 FECAL OCCULT BLOOD TEST 01/22/1997 FIT Testing (1 year) 01/22/1997 ZOSTER VACCINE (1 of 2) 01/22/2002 TDAP/TD VACCINES (2 - Tdap) 08/21/2016 08/21/2006 ANNUAL WELLNESS VISIT 03/29/2018 HEPATITIS C SCREENING 03/29/2018 Pneumococcal Vaccine 50+ (2 of 2 - PPSV23) 03/28/2019 03/28/2018 COVID-19 Vaccine (1 - season) 2023 INFLUENZA VACCINE 12/28/2024 01/06/2018, 01/28/2016 COLONOSCOPY 03/30/2026 03/30/2016 COLORECTAL CANCER SCREENING 03/30/2026 Insurance [employer] [facility] MEDIC[facility] A & B Care Teams Oracle Application Architect Relationship Specialty Start Date End Date Mike Otoole MD [address] [place] [address] [place] [address] PCP - General Family Medicine 10/06/22
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
--- OUTSIDE RECORDS SUMMARY | 2024-11-30 13:10 | XMS_ITS | Encounter Summary ---
Author Organization [facility] Address [address] [place] [address] Care Team Providers Care Regional Trainer Name Role Phone Mike Otoole MD Primary Care Provider [phone] Reason for Visit * Reason Onset Date Comments HCN Clinical Concern/Question 10/26/2024 Encounter Details Date Type Department Care Team (Late st Contact Info) Description 10/26/2024 Telephone [facility] [address] [place] [address] Ny Alfaro MD [address] [address] HCN Clinical Concern/Question Social History [...] * Telephone Encounter - Dolly Suazo - 11/02/2024 11:07 AM EDT LM requesting call back. * Telephone Encounter - Marie Palacios Kunal - 10/26/2024 12:45 PM EDT Clinical Concern/Question Reason for Call: Patient calling to discuss glasses rx. Best contact number: [phone] (home) Optimal time of day to reach caller: ANYTIME Additional comments/information from caller: None Note: Please do not reply to this message. Follow-up communication and further actions as a result of this message need to be communicated with the patient directly, if the patient is not active onMyChart. If the patient is active on MyChart, they will receive notification of the communication/outcome via [employer]. documented in this encounter Plan of Treatment Upcoming Encounters Date Type Department Care Team (Late st Contact Info) Description 02/27/2025 10:45 AM EST Office Visit [facility] [address] [place] [address] Ny Alfaro MD [address] [address] documented as of this encounter [...] documented as of this encounter Care Teams Regional Trainer Relationship Specialty Start Date End Date Mike Otoole MD [address] [place] [address] PCP - General 06/25/23 documented as of this encounter
--- OUTSIDE RECORDS SUMMARY | 2024-11-30 13:10 | XMS_ITS | Encounter Summary ---
Author Organization [facility] Address [address] [facility] [place] [address] Care Team Providers Care Elastic Attacher Overlock Name Role Phone Mike Otoole MD Primary Care Provider [phone] Encounter Details Date Type Department Care Team (Late st Contact Info) Description 08/06/2024 Results Follow-Up [facility] [address] [place] [address] Linda Silva MD [address] [facility] [address] [place] [address] Social History Tobacco Use Types Packs/Day Years [...] pleasure in doing things Not at all 08/23/2024 11:31 AM EDT Velvet Mathew Feeling down, depressed, or hopeless Not at all 05/2 09/2024 11:31 AM EDT Velvet Mathew Patient Health Questionnaire-2 Score 0 07/29 11:31 AM EDT Velvet Mathew * Calculated C-SSRS Risk Score (Lifetime/Recent) Answer Date of Assessment Author No Risk Indicated 08/23/2024 11:31 AM EDT PriyankaKunal sherrie Schwab * If you checked off any problems on this questionnaire so far, Question Answer Date of Assessment Author How difficult have these problems made it for you to do your work, take care of things at home, or get along with other people? Not difficult at all 08/23/2024 11:31 AM EDT Velvet Mathew * Question Answer Date of Assessment Author 1. Wish to be (Past 1 Month) No 025 11:31 AM EDT Velvet Mathew 2. Non-Specific Active Suici sydni Thoughts (Past 1 Month) No 08/23/2024 11:31 AM EDT Velvet Mathew 6. Suicidal Behavior (Lifetime) No 11:31 AM EDT Velvet Mathew documented as of this encounter Plan of Treatment Upcoming Encounters Date Type Department Care Team (Late st Contact Info) Description 02/27/2025 10:45 AM EST Office Visit [facility] [address] [facility] [place] [address] Ny Alfaro MD [address] [address] documented as of this encounter Visit Diagnoses Not on filedocumented in this encounter Additional Health Concerns Assessment Noted Time PHQ-9 Depression Total Score: 0 02/09/20 11:55 AM EST A fall risk assessment has been complete d for the patient 06/21/2024 8:18 AM EDT A Body Mass Index follow-up plan has been documented for the patient 07/20/2024 1:10 PM EDT documented as of this encounter Care Teams Elastic Attacher Overlock Relationship Specialty Start Date End Date Mike Otoole MD [facility] [place] [address] PCP - General 06/25/23 documented as of this encounter
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
--- OUTSIDE RECORDS SUMMARY | 2024-11-30 13:10 | XMS_ITS | Clinical Summary ---
Author Organization [employer] ([place], [place], [place], [place]) Address [address] [place] [address] Care Team Providers Care Tile Classifier Name Role Phone Unavailable Primary Care Provider Unavailabl e Encounters Date Type Department Care Team Description 11/22/2024 Telephone [facility] Speech Language Pathology [address] [address] Katy Dale CCC-MARINE STEWARD 11/14/2024 2:00 PM EDT Treatment [facility] Speech Language Pathology [address] [address] Ivette Palacios DO Lankster, Michelle P CCC-MARINE STEWARD Cognitive communication deficit (Primary Dx); Attention and concentration deficit; Post concussion syndrome 11/09/2024 12:00 PM EDT Treatment [facility] Speech Language Pathology [address] [address] Ivette Palacios DO Lankster, Michelle P CCC-MARINE STEWARD Cognitive communication deficit (Primary Dx); Attention and concentration deficit; Post concussion syndrome 11/02/2024 3:00 PM EDT Treatment [facility] Speech Language Pathology [address] [address] Ivette Palacios DO Lankster, Michelle P CCC-MARINE STEWARD Cognitive communication deficit (Primary Dx); Attention and concentration deficit; Post concussion syndrome 10/26/2024 3:00 PM EDT Treatment [facility] Speech Language Pathology [address] [place] [address] Ivette Palacios DO Lankster, Michelle P, THOMAS-MARINE STEWARD Cognitive communication deficit (Primary Dx); Post concussion syndrome; Attention and concentration deficit 10/20/2024 1:00 PM EDT Treatment [facility] Speech Language Pathology - [address] [address] Ivette Palacios DO Lankster, Michelle P, CCC-MARINE STEWARD Post concussion syndrome 09/28/2024 2:00 PM EDT Treatment [facility] Speech Language Pathology - [address] [address] Ivette Palacios DO Lankster, Michelle P, THOMAS-MARINE STEWARD Post concussion syndrome 09/21/2024 12:00 PM EDT Treatment [facility] Speech Language Pathology [address] [address] Ivette Palacios DO Lankster, Michelle P, CCC-MARINE STEWARD Cognitive communication deficit (Primary Dx); Post concussion syndrome; Attention and concentration deficit 09/12/2024 Telephone [facility] Speech Language Pathology - [address] [address] Katy Dale CCC-MARINE STEWARD Appointment 08/31/2024 3:00 PM EDT Evaluation [facility] Speech Language Pathology [address] [address] Ivette Palacios DO Lankster, Michelle P, CCC-MARINE STEWARD Cognitive communication deficit (Primary Dx); Attention and concentration deficit from Last 3 Months Social History Tobacco Use Types Packs/Day Years [...] Date Eder rded Speak language other than Sri Lankan at home Not on file 07/21/2023 Want [...] on file Sexual Orientation Not on file Plan of Treatment Upcoming Encounters Date Type Department Care Team (Late st Contact Info) Description 12/01/2024 2:00 PM EDT Treatment [facility] Speech Language Pathology - [facility] [address] [place] [address] Palacios Ivette Weinstein, DO [address] [place], [place] [id number] Katy Dale, [facility]-MARINE STEWARD Health Maintenance Due Date Last Done Comments CT Colonography 1950 Colonoscopy 1950 Colorectal Cancer Screening 1950 FOBT/FIT 1952 Fit-DNA (Cologuard) 1950 Sigmoidoscopy 1950 Depression Screening (12+) 1964 Tobacco Cessation Counseling and Screening (12+) 01/22 Hepatitis C Screening 01/22/1970 Shingles Vaccine (Zoster) (1 of 2) 01/22/2002 DTAP/TDAP/TD VACCINES (2 - Td or Tdap) 08/21/2016 Pneumococcal 50+ years (2 of 2 - PPSV23) 03/28/2019 03/28/2018 COVID-19 VACCINE ( - season) 2023 Medicare Initial AWV [id number] 12/30/2023 Falls Risk Screening 03/30/2024 Influenza Vaccine (#1) 2024 01/06/2018 Respiratory Syncytial Virus (RSV) Adult or (1 - 1-dose 75+ series) 01/22/2027 Insurance [facility] MEDICARE [place] [address] [place] [address]
--- OUTSIDE RECORDS SUMMARY | 2024-11-30 13:10 | XMS_ITS | Referral Summary ---
Author Organization [employer] ([place], [place], [place]) Address [address] [place] [address] Care Team Providers Care Finger Waver Name Role Phone Unavailable Primary Care Provider Unavailabl e Encounters Date Type Department Care Team Description 11/22/2024 Telephone [facility] Speech Language Pathology [address] [address] Katy Dale CCC-PRACTICE COORDINATOR 11/14/2024 2:00 PM EDT Treatment [facility] Speech Language Pathology - [address] [address] Ivette Palacios DO Lankster, Michelle P CCC-PRACTICE COORDINATOR Cognitive communication deficit (Primary Dx); Attention and concentration deficit; Post concussion syndrome 11/09/2024 12:00 PM EDT Treatment [facility] Speech Language Pathology [address] [address] Ivette Palacios DO Lankster, Michelle P CCC-PRACTICE COORDINATOR Cognitive communication deficit (Primary Dx); Attention and concentration deficit; Post concussion syndrome 11/02/2024 3:00 PM EDT Treatment [facility] Speech Language Pathology [address] [address] Ivette Palacios DO Lankster, Michelle P CCC-PRACTICE COORDINATOR Cognitive communication deficit (Primary Dx); Attention and concentration deficit; Post concussion syndrome 10/26/2024 3:00 PM EDT Treatment [facility] Speech Language Pathology [address] [place] [address] Ivette Palacios DO Lankster, Michelle P, THOMAS-PRACTICE COORDINATOR Cognitive communication deficit (Primary Dx); Post concussion syndrome; Attention and concentration deficit 10/20/2024 1:00 PM EDT Treatment [facility] Speech Language Pathology - [address] [address] Ivette Palacios DO Lankster, Michelle P, CCC-PRACTICE COORDINATOR Post concussion syndrome 09/28/2024 2:00 PM EDT Treatment [facility] Speech Language Pathology - [address] [address] Ivette Palacios DO Lankster, Michelle P, THOMAS-PRACTICE COORDINATOR Post concussion syndrome 09/21/2024 12:00 PM EDT Treatment [facility] Speech Language Pathology [address] [address] Ivette Palacios DO Lankster, Michelle P, CCC-PRACTICE COORDINATOR Cognitive communication deficit (Primary Dx); Post concussion syndrome; Attention and concentration deficit 09/12/2024 Telephone [facility] Speech Language Pathology - [address] [address] Katy Dale CCC-PRACTICE COORDINATOR Appointment 08/31/2024 3:00 PM EDT Evaluation [facility] Speech Language Pathology [address] [address] Ivette Palacios DO Lankster, Michelle P, CCC-PRACTICE COORDINATOR Cognitive communication deficit (Primary Dx); Attention and [...] Date Eder rded Speak language other than Moldovan at home Not on file 07/21/2023 Want [...] Info) Description 12/01/2024 2:00 PM EDT Treatment [facility] Speech Language Pathology - [facility] [address] [place] [address] Philip Ivette Weinstein, DO [address] [place], [place] [id number] Katy Dale, [facility]-PRACTICE COORDINATOR Insurance [facility] MEDICARE PART [facility] SUPPL
== END 2024-11-30 23:59 | disposition home or self-care (01) ==
LOC: RT 12:56
PROVIDERS: PCP Family Medicine; Visit Provider Internal Medicine
DX: I49.3 Ventricular premature depolarization (principal); I49.1 Atrial premature depolarization; I47.10 Supraventricular tachycardia, unspecified; R94.31 Abnormal electrocardiogram [ECG] [EKG]; I10 Essential (primary) hypertension; N52.9 Male erectile dysfunction, unspecified
CPT/HCPCS: 93225; 93227

== ENCOUNTER 2024-12-16 16:03 | Outpatient (CLI) | payer MEDICARE, BC, SELFPAY ==
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
--- OUTSIDE RECORDS SUMMARY | 2024-12-16 16:06 | XMS_ITS | Encounter Summary ---
Author Organization [facility] Address [address] [place] [address] Care Team Providers Care Shuttleless Loom Weaver Name Role Phone Mike [place] MD Primary Care Provider [phone] Reason for Visit * Reason Onset Date Comments HCN Clinical Concern/Question 10/26/2024 Encounter Details Date Type Department Care Team (Late st Contact Info) Description 10/26/2024 Telephone [facility] [address] [place] [address] Ny Alfaro MD [address] [address] HCN Clinical Concern/Question Social History [...] to discuss glasses rx. Best contact number: [phone] (home) Optimal time of day to reach caller: ANYTIME Additional comments/information from caller: None Note: Please do not reply to this message. Follow-up communication and further actions as a result of this message need to be communicated with the patient directly, if the patient is not active onMyChart. If the patient is active on MyChart, they will receive notification of the communication/outcome via [employer]. documented in this encounter Plan of Treatment Upcoming Encounters Date Type Department Care Team (Late st Contact Info) Description 02/27/2025 10:45 AM EST Office Visit [facility] [address] [place] [address] Ny Alfaro MD [address] [address] documented as of this encounter [...] documented as of this encounter Care Teams Shuttleless Loom Weaver Relationship Specialty Start Date End Date Mike [place] MD [address] [place] [address] PCP - General 06/25/23 documented as of this encounter
--- OUTSIDE RECORDS SUMMARY | 2024-12-16 16:06 | XMS_ITS | Encounter Summary ---
Author Organization [facility] Address [address] [place] [address] Care Team Providers Care Cloth Shader Name Role Phone Mike [place] MD Primary Care Provider [phone] Encounter Details Date Type Department Care Team [...] Description 02/27/2025 10:45 AM EST Office Visit [facility] [address] [place] [address] Ny Alfaro MD [address] [address] documented as of this encounter [...] documented as of this encounter Care Teams Cloth Shader Relationship Specialty Start Date End Date [facility] [place] [place] [address] PCP - General 06/25/23 documented as of this encounter
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
--- OUTSIDE RECORDS SUMMARY | 2024-12-16 16:06 | XMS_ITS | Clinical Summary ---
Author Organization [facility] Address [address] [place] [address] Care Team Providers Care Sheet Writer Name Role Phone Mike [place]ole M.D. Primary Care Provider [phone] Source Comments [facility] is fully rolled out with thefollowing exceptions:General Clinical Research [facility] Encounters Date Type Department Care Team Description 12/07/2024 Telephone [facility] Division of Pediatric Ophthalmology [address] [place] [phone] Yazmin Mello, OCTAVIO Referrals from Last 3 Months Social History Tobacco Use Types Packs/Day Years Used Date Smoking Tobacco: Never Assessed Sex and Gender Information Value Date Recorded Sex Assigned at Not on file Legal Sex Male 4:39 PM EDT Gender Identity Not on file Sexual Orientation Not on file Plan of Treatment Health Maintenance Due Date Last Done Comments MMR IMMUNIZATION (1 of 1 - S tandard series) 01/22/1951 DTAP/Tdap/Td IMMUNIZATION (1 - Tdap) 01/22/1959 VARICELLA IMMUNIZATION (1 of 2 - 13+ 2-dose series) 01/22/1965 AMB SEASONAL FLU VACCINE (#1) 11/28/2024 COVID-19 Vaccine ( - 2023-2 5 season) 2024 Respiratory Syncytial Virus (RSV) >60yo or (1 - 1-dose 75+ series) 01/22/2027 HEPATITIS B IMMUNIZATION Aged Out No longer eligible based on patient's age to complete this topic HIB IMMUNIZATION Aged Out No longer e ligible based on patient's age to complete this topic HPV IMMUNIZATION Aged Out No longer e ligible based on patient's age to complete this topic IPV IMMUNIZATION Aged Out No longer e ligible based on patient's age to complete this topic MCV4 IMMUNIZATION Aged Out No longer eligible based on patient's age to complete this topic MENINGOCOCCAL B VACCINE Aged Out No l onger eligible based on patient's age to complete this topic Respiratory Syncytial Virus (RSV) <20mo Aged Out No longer eligible b ased on patient's age to complete this topic Insurance [employer] NON-TRADITIONAL Care Teams Sheet Writer Relationship Specialty Start Date End Date Mike [place]ole M.D. [address] [place] [address] PCP - General External Family Practice 10/31/24
--- OUTSIDE RECORDS SUMMARY | 2024-12-16 16:06 | XMS_ITS | Clinical Summary ---
Author Organization [facility] Address [address] [place] [address] Care Team Providers Care Dining Room Busser Name Role Phone Mike [place] MD Primary Care Provider [phone] Allergies No known active allergies Medications sildenafil [...] Description 12/28/2024 3:30 PM EDT Office Visit [facility] [address] [address] Sarah Gonzalez MD [address] [address] Health Maintenance Due Date Last Done Comments COLOGUARD 01/22/1997 COLON CANCER SCREENING 5 YEA R SIGMOIDOSCOPY 01/22/1997 CT COLONOGRAPHY 01/22/1997 FECAL OCCULT BLOOD TEST 01/22/1997 FIT Testing (1 year) 01/22/1997 ZOSTER VACCINE (1 of 2) 01/22/2002 TDAP/TD VACCINES (2 - Tdap) 08/21/2016 08/21/2006 ANNUAL WELLNESS VISIT 03/29/2018 HEPATITIS C SCREENING 03/29/2018 Pneumococcal Vaccine 50+ (2 of 2 - PPSV23) 03/28/2019 03/28/2018 INFLUENZA VACCINE 10/28/2024 01/06/2018, 01/28/2016 COVID-19 Vaccine ( season) 2024 COLONOSCOPY 03/30/2026 03/30/2016 COLORECTAL CANCER SCREENING 03/30/2026 Insurance Info [facility] & B Care Teams Dining Room Busser Relationship Specialty Start Date End Date Mike [place]ole MD [address] [place] [address] [place] [address] PCP - General Family Medicine 10/06/22
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
== END 2024-12-16 23:59 | disposition home or self-care (01) ==
LOC: RT 16:05
PROVIDERS: PCP Family Medicine; Visit Provider Internal Medicine
DX: I49.3 Ventricular premature depolarization (principal); I48.91 Unspecified atrial fibrillation; I49.1 Atrial premature depolarization; I47.19 Other supraventricular tachycardia; I47.29 Other ventricular tachycardia
CPT/HCPCS: 93270

== ENCOUNTER 2025-01-16 11:15 | Outpatient (CLI) | payer MEDICARE, BC, SELFPAY ==
--- OUTSIDE RECORDS SUMMARY | 2024-12-01 14:00 | XMS_ITS | Encounter Summary ---
Author Organization [employer] ([place], [place], [place], [place]) Address [address] [place] [address] Care Team Providers Care Director [facility] Name Role Phone Unavailable Primary Care Provider Unavailabl e Reason for Visit * Speech Therapy (Routine) - Authorized Specialty Diagnoses / Procedures Referred By Contac t Referred To Contact Speech Pathology / Speech Therapy Diagnoses Post concussion syndrome Ivette Palacios, DO [address] [place], [place] [id number] Phone: tel: fax: Katy Dale, CCC-VOCATIONAL TECHNICAL EDUCATION DIRECTOR Referral ID Status Reason Start Date Expiration Date V isits Requested Visits Authorized [id number] Authorized 08/31/2024 09/11/2025 99 99 Encounter Details Date Type Department Care Team (Late st Contact Info) Description 12/01/2024 2:00 PM EDT Treatment [facility] Speech Language Pathology - [facility] [address] [place] [address] [phone] Ivette Palacios, DO [facility] [place] [address] Katy Dale, CCC-VOCATIONAL TECHNICAL EDUCATION DIRECTOR Cognitive communication deficit (Primary Dx); Attention [...] Date Eder rded Speak language other than [place] at home Not on file 07/21/2023 Want [...] this encounter Progress Notes * Katy Dale, THOMAS-VOCATIONAL TECHNICAL EDUCATION DIRECTOR - 12/01/2024 2:00 PM EDT Images from the original note were not included. Speech Therapy Reevaluation/Plan of Care of Revision Outpatient Daily Treatment Note Cognition Patient Name:Arturo Fajardo Referring MD:Ivette Palacios,* Date of :1950 Age: 74 y.o. Today: 12/01/2024 Time in/out:5427-3441 Length of Treatment: 51-Qebxkcarokjh-mqckumxi Treatment Session Number: 10/06 Pain: No pain c/o Subjective Arrived with . Upset re: VOCATIONAL TECHNICAL EDUCATION DIRECTOR documentation in EMR. Pt would like to continue with therapy despite upset re: VOCATIONAL TECHNICAL EDUCATION DIRECTOR documentation in EPIC. Pt voiced concern re: validity of the information documented. He mentioned a desire for VOCATIONAL TECHNICAL EDUCATION DIRECTOR to remove/edit previous documentation. VOCATIONAL TECHNICAL EDUCATION DIRECTOR explained information is protected an viewable only by pt and medical providers with access to the system. Pt voiced concern about documentation systems being accessed or hacked resulting in information available to others outside of the system. Pt mentioned interest in speaking to management in the [facility] re: documentation. VOCATIONAL TECHNICAL EDUCATION DIRECTOR offered assistance to reach out to whomever pt would like to address his concerns. No further mention was made re: this request. Cognitive status: Alert and oriented Objective Skilled ST treatment provided to improve Cognition . The session plan was discussed with the patient and/or family (if the patient is unable to respond)and the patient and/or family agreed to the session. The following exercises were completed with the patient working towards short term goals: Therapeutic Activities Performed # correct # completed % Cues/Notes [] Alternating attention [x] 18 20 90% Cards-mental flexibility with word order- Initially needed cuesto alternate between tasks- once changed to 3 between, pt stated he could establish a rhythm. No additional cues needed. Sustained attention [x] X 15 minutes- excellent Abstract divergent-5 items [x] 80% Word fluency- 30 seconds [] [] [] [] [] [] [] Comments: present for the first portion of therapy -when pt was verbalizing concerns re: documentation. 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 100% Working memory included in alternating attention task- 4 words- reorder- reverse/alphabetical. [] [x] [] [] Complete alternating/divided attention tasks with 90% 90% Agitating attention - initially, cues needed to comply-Pt endorsed that once I placed a number on the card task, he was better able to keep up with alternating attention vs. When the task required switching after completing eachtask one time [] [] [] [x] Complete sustained attention tasks x 3-5 minutes without redirection with 90% X 15 minutes-Break after 15 minutes to make a comment but then immediately returned to the task without redirection. [x] [] [] [] Complete mental flexibility tasks with 90% with/without compensatory strategies 85% Not addressed [] [x] [] [] Complete abstract divergent word fluency tasks with 5- items in 30 seconds-1 minute with 90%. 80% 30 seconds- 5 items per abstract category [x] [] [] [] Complete executive function tasks with/without compensatory strategies with 90% Not addressed. [x] [] [] [] Understanding of deficits and impact on social interactions Not addressed- pt verbalized several times- awareness of staying on task, not getting off topic [] [x] [] [] Complete conversational task/respond to questions with an appropriate response length without unrelated/unnecessary information x 5 minutes.- Pragmatic- appropriate speech- recognition of environmental cues Pt was upset on arrival but was able to express his concerns. Difficult to redirect BUT, pt clearly upset therefore difficulty redirecting is reasonable. Once pt stated his concerns, stated his desire to continue with therapy, he was on task the rest of the session. [] [x] [] [] Demonstrate self monitoring of deficits/impairment with at least an attempt to self correct Awareness of VOCATIONAL TECHNICAL EDUCATION DIRECTOR goal for pt to stay on task [x] [] [] [] Verbally summarize details of an article re: attention/cognition including salient information with 85% Written succinct summary of an article re: attention/cognition with each sentence/summary statementless than 12 words. Not addressed [x] [] [] [] Develop and instruct re: appropriate home exercises Ongoing Summary: Successful with working memory and sustained attention with goals met. Successful with agitating attention. More time to be spent on mental flexibility, divided attention, word fluency, comprehension-summarization of more complex material. Continued instruction re: the benefit of a schedule including a sleep schedule to assist with brain recovery. Pt is aware of the impact of fatigue related to driving to therapy and then participating in therapy and then driving home, however he is having difficulty with achieving/maintaining a consistent adequate sleep schedule. Progress towards goals: Continue therapy per plan Education: Ongoing instruction re: the impact of the head injury/benefits of therapy/need for rest/home exercises. Concomitant Factors: other- Visual impairment/impact of fatigue Response to Treatment: Patient tolerated therapy/intervention well with no complications, complaints or adverse events. Plan Continue treatment per updated plan of care. Therapy Frequency: 1x weekly as schedule allows- Recommend 8 additional sessions (3 remaining +5 additional) Plan of Care Certification Date: 12/01/2024-03/02/2025 with varying frequency based on patient progress. VOCATIONAL TECHNICAL EDUCATION DIRECTOR Discharge Planning: ongoing speech language pathology services are indicated for cognitive communication deficits This will serve as a discharge statement if patient is discharged before further visits. Electronically signed by Katy Dale MA CCC-VOCATIONAL TECHNICAL EDUCATION DIRECTOR- 12/01/2024 - 2006 PM EST Outpatient Certification: The speech/language/cognitive/dysphagia services are or were furnished while the patient was under the care of a physician. A plan for furnished services is or was established and periodically reviewed by the physician. The speech therapy services are or were required by the physician. Physician???s Signature Date documented in this encounter Plan of Treatment Not on file documented as of this encounter Visit Diagnoses Diagnosis Cognitive communication deficit- Primary Attention and concentration deficit Post concussion syndrome Postconcussion syndrome documented in this encounter
--- OUTSIDE RECORDS SUMMARY | 2024-12-28 15:30 | XMS_ITS | Encounter Summary ---
Author Organization [facility] Address [address] [place] [address] Care Team Providers Care Cement Truck Loader Name Role Phone Mike Otoole MD Primary Care Provider [phone] Reason for Visit * Reason Comments Follow-up 6 month recheck- Acq uired hallux rigidus of right foot Encounter Details Date Type Department Care Team (Late st Contact Info) Description 12/28/2024 3:30 PM EDT Office Visit [facility] [address] [place] [address] Sarah Gonzalez MD [address] [place] [address] Acquired hallux rigidus of right foot (Primary Dx) Social History Tobacco Use Types Packs/Day Years Used Date Smoking Tobacco: Never Smokeless Tobacco: Never Alcohol Use Standard Drinks/Week Comments No 0 [...] Sign Reading Time Taken Comments Blood Pressure 126/84 12/28/2024 3:39 PM EDT Pulse - - Temperature - - Respiratory Rate - - Oxygen Saturation - - Inhaled Oxygen Concentration - - Weight 88 kg (194 lb) 12/28/2024 3:39 PM EDT Height 172.1 cm (5' 7.76 ) 12/28/2024 3:39 PM ED T Body Mass Index 29.71 12/28/2024 3:39 PM EDT documented in this encounter Progress Notes * Sarah Gonzalez MD - 12/28/2024 3:30 PM EDT ESTABLISHED PATIENT Patient: Arturo Corbin : 1950 Primary Care Provider: Mike Otoole MD Requesting Provider: As above Follow-up (6 month recheck- Acquired hallux rigidus of right foot) History Chief Complaint: Great toe pain History of Present Illness: He would like another injection Current Outpatient Medications on File Prior to Visit Medication Sig Dispense Refill famotidine (PEPCID) 10 MG tablet Take 1 tablet by mouth 2 (Two) Times a Day. sildenafil (REVATIO) 20 MG tablet take 1 tablet by mouth three times daily As Needed for sexual activity No current facility-administered medications on file prior to visit. No Known Allergies Past Medical History: Diagnosis Date Gallstones Pancreatitis Past Surgical History: Procedure Laterality Date APPENDECTOMY CHOLECYSTECTOMY KNEE SURGERY Right arthroscopy SHOULDER SURGERY TOOTH EXTRACTION Family History Problem Relation Age of Onset Cancer Mother Social History Socioeconomic History Marital status: Single Tobacco Use Smoking status: Never Smokeless tobacco: Never Vaping Use Vaping status: Never Used Substance and Sexual Activity Alcohol use: No Drug use: No Sexual activity: Defer Review of Systems Constitutional: Negative. HENT: Negative. Eyes: Negative. Respiratory: Negative. Cardiovascular: Negative. Gastrointestinal: Negative. Endocrine: Negative. Genitourinary: Negative. Musculoskeletal: Positive for arthralgias. Skin: Negative. Allergic/Immunologic: Negative. Neurological: Negative. Hematological: Negative. Psychiatric/Behavioral: Negative. The following portions of the patient's history were reviewed and updated as appropriate: allergies, current medications, past family history, past medical history, past social history, past surgicalhistory, and problem list. Physical Exam: BP 126/84 Ht 172.1 cm (67.76 ) Wt 88 kg (194 lb) BMI 29.71 kg/m?? Tender, stiff right first MTPJ Medical Decision Making Data Review: ordered and reviewed x-rays today Assessment/Plan/Diagnosis/Treatment Options: 1. Acquired hallux rigidus of right foot After discussing the risks (including infection, skin atrophy, etc), time out was called, the [id number] MTPJ was prepped and using sterile technique injected with 0.5cc of 1% lidocaine and 1cc(40mg)triamcinolone. A band aid was applied. No complications. Sarah Gonzalez MD * Wendy Babcock CMA - 12/28/2024 3:30 PM EDTAssociated Order(s): - Small Joint Arthrocentesis: R great MTP Procedure - Small Joint Arthrocentesis: R great MTP on 12/28/2024 3:54 PM Indications: pain Details: 21 G needle, medial approach Medications: 0.5 mL lidocaine PF 1% 1 %; 40 mg triamcinolone acetonide 40 MG/ML Outcome: tolerated well, no immediate complications Procedure, treatment alternatives, risks and benefits explained, specific risks discussed. Consent was given by the patient. Immediately prior to procedure a time out was called to verify the correctpatient, procedure, equipment, academic support coordinator and site/side marked as required. Patient was prepped and draped in the usual sterile fashion. documented in this encounter Plan of Treatment Upcoming Encounters Date Type Department Care Team (Late st Contact Info) Description 06/28/2025 3:30 PM EDT Office Visit [facility] [address] [address] Sarah Gonzalez MD [address] [address] documented as of this encounter Procedures Procedure Name Priority Date/Time Associated Diagnosis Comments [place] ARTHROCENTESIS ASPIR&/INJ SMALL JT/BURSA W/O US Routine 12/28/2024 3:54 PM EDT Acquired hallux rigidus of right foot XR FOOT 2 VW RIGHT Routine 12/28/2024 3: 46 PM EDT Acquired hallux rigidus of right foot documented in this encounter Results * [place] ARTHROCENTESIS ASPIR&/INJ SMALL JT/BURSA W/O US (12/28/2024 3:54 PM EDT) Narrative Wendy Babcock CMA - 12/28/2024 3:54 PM EDT Wendy Babcock CMA 12/28/2024 4:08 PM - Small Joint Arthrocentesis: R great MTP on 12/28/2024 3:54 PM Indications: pain Details: 21 G needle, medial approach Medications: 0.5 mL lidocaine PF 1% 1 %; 40 mg triamcinolone acetonide 40 MG/ML Outcome: tolerated well, no immediate complications Procedure, treatment alternatives, risks and benefits explained, specific risks discussed. Consent was given by the patient. Immediately prior to procedure a time out was called to verify the correct patient, procedure, equipment, academic support coordinator and site/side marked as required. Patient was prepped and draped in the usual sterile fashion. us Sarah Gonzalez MD PROCEDURE/MINOR SURGICAL ORDER SARKIS Final Result * XR Foot 2 View Right (12/28/2024 3:46 PM EDT) Anatomical Region Laterality Modality Lower Extremities, Foot Right Xray Narrative 12/28/2024 3:57 PM EDT Standing AP lateral right foot ordered for pain, shows severe cartilage loss in the first MTPJ, mild medial angulation of the second toe, compared to 10/28/2023 us Sarah Gonzalez MD IMG DIAGNOSTIC IMAGING ORDERAB LES Final Result documented in this encounter Visit Diagnoses Diagnosis Acquired hallux rigidus of right foot- Primary documented in this encounter Administered Medications Inactive Administered Medications - up to 3 most recent administrations Medication Order MAR Action Action Date Dose Rate Site lidocaine PF 1% (XYLOCAINE) injection 0.5 mL 0.5 mL, One-Time Injection, Starting on Thu12/28/24 at 1554, For 1 doseIndications:Acquired hallux rigidus of right foot Given 12/28/2024 3:54 PM EDT 0.5 mL Foot Right triamcinolone acetonide (KENALOG-40) injection 40 mg 40 mg, One-Time Injection, Starting on Thu12/28/24 at 1554, For 1 doseIndications:Acquired hallux rigidus of right foot Given 12/28/2024 3:54 PM EDT 40 mg Foot Right documented in this encounter Care Teams Cement Truck Loader Relationship Specialty Start Date End Date Mike Otoole MD [address] [place] [address] PCP - General Family Medicine 10/06/22 documented as of this encounter
--- NOTE | 2025-01-16 11:00 | CA_ITS ---
APPROVED REPORT EXAM: Comprehensive 2D, Doppler, and color-flow Echocardiogram Wash House Worker: Hamida Abbott RVT Ht: 5 ft 11 in Wt: 200lbs BSA: 2.11 BP: 147/96 mmHg Indications: ABNORMAL EKG,CHEST PAIN,PALPITATIONS M-Mode Dimensions RVDd 2.72 cm (0.9-2.6) LA Diam 2.73 cm (1.9-4.0) LVDd 4.49 cm (3.5-5.7) LVDs 2.88 cm (3.5-5.7) IVSd 1.12 cm (0.6-1.1) PWd 0.84 cm (0.6-1.1) EF (Teich) 65.50% FS 35.90% EDV (Teich) 92.00 mL TAPSE 2.04 (<1.7) ESV (Teich) 31.70 mL LV Diastology E Decel Time 150 (160-240 msec) E/A Ratio 0.7 Aortic Valve LORRI Index 1.41 cm2/m2 AoV Peak Samir. 106.0 (50-130 cm/s) AI PHT 1462.00 ms AO Peak GR. 4.50 mmHg AO Mean GR. 2.50 (<5 mmHg) AO VTI 21.1 (18-25 cm) LORRI (VTI) 3.04 (2.5-4.5 cm2) Mitral Valve MV E Max Samir. 56.0 (40-130 cm/s) MV A Velocity 79.0 (40-130 cm/s) E/A Ratio 0.71 MV PHT 44.0 ms Pulmonary Valve PV Peak Velocity 42.0 (50-150 cm/s) Left Ventricle The left ventricle is normal size. Left ventricular systolic function is normal. The left ventricular ejection fraction is within the normal range. Proximal septal thickening is present. There is normal LV segmental wall motion. Transmitral Doppler flow pattern suggests impaired LV relaxation. LVEF is 55% Right Ventricle The right ventricle is normal size. The right ventricular systolic function is normal. Atria The left atrium is mildly dilated. The right atrium size is normal. There is no color Doppler evidence of interatrial shunt. Aortic Valve The aortic valve is mildly thickened. There is no hemodynamically significant aortic valvular stenosis. Moderate aortic regurgitation is present. Mitral Valve The mitral valve is normal in structure. No evidence of mitral valve stenosis. Mild mitral regurgitation is present. Tricuspid Valve The tricuspid valve leaflets are thin and pliable. Trace tricuspid regurgitation. There is insufficient TR jet to estimate RVSP. Pulmonic Valve The pulmonary valve is grossly normal in structure. Mild pulmonic valve regurgitation is present. Great Vessels The aortic root is normal in size. The ascending aorta is mildly dilated, measuring 4.0 cm in diameter. IVC is normal in size and collapses >50% with inspiration. Pericardium There is no pericardial effusion. Other Information Study Quality: Fair Conclusion Normal biventricular size and systolic function. Mild LA dilation. Moderate AI. Mild MR, mild PI. The ascending aorta is mildly dilated, measuring 4.0 cm in diameter. Correlation with new or recent CTA chest is suggested. Electronically signed by : Gladys Kong MD 01/19/2025 12:44:09
--- OUTSIDE RECORDS SUMMARY | 2025-01-16 11:20 | XMS_ITS | Clinical Summary ---
Author Organization [facility] Address [address] [place] [address] Care Team Providers Care Gizzard Peeler Name Role Phone Mike Otoole MD Primary Care Provider [phone] Allergies No known active allergies Medications sildenafil [...] Achilles tendinitis of left lower extremity 03/01 Encounters Date Type Department Care Team Description 12/28/2024 3:30 PM EDT Office Visit [facility] [address] [place] [address] Sarah Gonzalez MD Acquired hallux rigidus of right foot (Primary Dx) 12/28/2024 Travel from Last 3 Months Family History [...] Pressure 126/84 12/28/2024 3:39 PM EDT Pulse 68 05/05/2023 9:45 PM EST Temperature 36.6 C (97.9 F) 05/05/2023 8:31 PM EST Respiratory Rate 16 05/05/2023 8:31 PM EST Oxygen Saturation 99% 05/05/2023 9:45 PM EST Inhaled Oxygen Concentration - - Weight 88 kg (194 lb) 12/28/2024 3:39 PM EDT Height 172.1 cm (5' 7.76 ) 12/28/2024 3:39 PM ED T Body Mass Index 29.71 12/28/2024 3:39 PM EDT Plan of Treatment Upcoming Encounters Date Type Department Care Team (Late st Contact Info) Description 06/28/2025 3:30 PM EDT Office Visit [facility] [address] [place] [address] Sarah Gonzalez MD [address] [place] [address] Health Maintenance Due Date Last Done Comments COVID-19 Vaccine (#1) 01/22/1955 COLOGUARD 01/22/1997 COLON CANCER SCREENING 5 YEA R SIGMOIDOSCOPY 01/22/1997 CT COLONOGRAPHY 01/22/1997 FECAL OCCULT BLOOD TEST 01/22/1997 FIT Testing (1 year) 01/22/1997 ZOSTER VACCINE (1 of 2) 01/22/2002 TDAP/TD VACCINES (2 - Tdap) 08/21/2016 08/21/2006 ANNUAL WELLNESS VISIT 03/29/2018 HEPATITIS C SCREENING 03/29/2018 Pneumococcal Vaccine 50+ (2 of 2 - PCV20 or PCV21) 03/28/2019 03/28/2018 INFLUENZA VACCINE 10/28/2024 01/06/2018, 01/28/2016 COLONOSCOPY 03/30/2026 03/30/2016 COLORECTAL CANCER SCREENING 03/30/2026 Procedures Procedure Name Priority Date/Time Associated Diagnosis Comments [place] ARTHROCENTESIS ASPIR&/INJ SMALL JT/BURSA W/O US Routine 12/28/2024 3:54 PM EDT Acquired hallux rigidus of right foot XR FOOT 2 VW RIGHT Routine 12/28/2024 3: 46 PM EDT Acquired hallux rigidus of right foot from Last 3 Months Results * [place] ARTHROCENTESIS ASPIR&/INJ SMALL JT/BURSA W/O US (12/28/2024 [...] to verify the correct patient, procedure, equipment, support services coordinator and site/side marked as required. Patient [...] IMG DIAGNOSTIC IMAGING ORDERAB LES Final Result from Last 3 Months Insurance [facility] MEDICARE A & B Care Teams Gizzard Peeler Relationship Specialty Start Date End Date Mike Otoole MD [address] [place], [place] [id number] [place] [address] PCP - General Family Medicine 10/06/22
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
--- OUTSIDE RECORDS SUMMARY | 2025-01-16 11:20 | XMS_ITS | Clinical Summary ---
Author Organization [facility] [place] [facility] Address [address] [place] [address] Care Team Providers Care Spray Drier Operator Name Role Phone Mike Otoole MD Primary Care Provider [phone] Source Comments [facility] is fully rolled out with thefollowing exceptions:General Clinical Research [facility] Encounters Date Type Department Care Team Description 12/07/2024 Telephone [facility] Division of Pediatric Ophthalmology [address] [place] [phone] Yazmin Mello, COT Referrals from Last 3 Months Social History [...] topic Insurance GUMARO ROBERTSON NON-TRADITIONAL Care Teams Spray Drier Operator Relationship Specialty Start Date End Date Mike Ootole MD [address] [place] [address] PCP - General External Family Practice 10/31/24
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
--- OUTSIDE RECORDS SUMMARY | 2025-01-16 11:20 | XMS_ITS | Encounter Summary ---
Author Organization [facility] Address [address] [place] [address] Care Team Providers Care Financial Services Assistant Name Role Phone Mike Otoole MD Primary Care Provider [phone] Encounter Details Date Type Department Care Team (Latest Contact Info) Description 12/28/2024 Travel Social History Tobacco Use Types Packs/Day [...] Description 06/28/2025 3:30 PM EDT Office Visit [facility] [address] [address] Sarah Gonzalez MD [address] [place] [id number] documented as of this encounter Visit Diagnoses Not on filedocumented in this encounter Care Teams Financial Services Assistant Relationship Specialty Start Date End Date Mike Otoole MD [address] [place] [address] PCP - General Family Medicine 10/06/22 documented as of this encounter
--- OUTSIDE RECORDS SUMMARY | 2025-01-16 11:21 | XMS_ITS | Encounter Summary ---
Author Organization [employer] ([place], [place], [place], [place]) Address [address] [place] [address] Care Team Providers Care Real Estate Officer Name Role Phone Unavailable Primary Care Provider Unavailabl e Encounter Details Date Type Department Care Team (Late st Contact Info) Description 11/22/2024 Telephone [facility] Speech Language Pathology - [address] [address] Katy Dale CCC-PHYSICIAN RELATIONS REPRESENTATIVE Social History Tobacco Use Types Packs/Day Years [...] Date Eder rded Speak language other than Burundian at home Not on file 07/21/2023 Want [...] Miscellaneous Notes * Telephone Encounter - SPARKLE MalloyPHYSICIAN RELATIONS REPRESENTATIVE - 11/22/2024 11:37 AM EDT Speech Language Pathology Telephone Follow Up Patient Name: Arturo Corbin Today's Date: 11/22/2024 Reason for Telephone Call: Pt called to cancel his appointment reporting he did not sleep well lastnight and did not feel safe driving. Comments: Rescheduled for next week Electronically signed by Katy Dale MA CCC-PHYSICIAN RELATIONS REPRESENTATIVE- 11/22/2024 - 11:38 AM EST documented in this encounter Plan of Treatment Not on file documented as of this encounter Visit Diagnoses Not on filedocumented in this encounter
--- OUTSIDE RECORDS SUMMARY | 2025-01-16 11:23 | XMS_ITS | Encounter Summary ---
Author Organization [facility] ([place], [place], [place], [place]) Address [address] [place] [address] Care Team Providers Care High Voltage Electrician Name Role Phone Unavailable Primary Care Provider Unavailabl e Reason for Referral * Speech Therapy (Routine) - Open Specialty Diagnoses / Procedures Referred By Jennifer t Referred To Contact Speech Pathology / Speech Therapy Diagnoses Postconcussion syndrome Ivette Palacios DO [address] [place] [address] Phone: tel: fax: Katy Dale [facility]-PAR[facility]OF[facility] INTERPRETER Referral ID Status Reason Start Date Expiration Date Visits Re quested Visits Authorized [id number] Open 01/06/2025 01/06/2026 1 1 Encounter Details Date Type Department Care Team (Latest Contact Info) Description 01/06/2025 Outside Orders [facility] Outpatient Physical Therapy [address] [place] [address] [place] [phone] Ivette Palacios DO [address] [place] [address] Postconcussion syndrome (Primary Dx) Social History Tobacco Use Types [...] Date Eder rded Speak language other than St Helenian at home Not on file 07/21/2023 Want [...] Type Priority Associated Diagnoses Orde r Schedule AMB REFERRAL TO SPEECH THERAPY EVALUATE, TREAT, AND PLAN OF CARE Outpatient Referral Routine Postconcussion syndrome Expected: 01/06/2025, Expires: 01/06/2026 documented as of this encounter Visit Diagnoses Diagnosis Postconcussion syndrome- Primary documented in this encounter
--- OUTSIDE RECORDS SUMMARY | 2025-01-16 11:23 | XMS_ITS | Encounter Summary ---
Author Organization [employer] ([place], [place], [place], [place]) Address [address] [place] [address] Care Team Providers Care Automotive Manager Name Role Phone Unavailable Primary Care Provider Unavailabl e Encounter Details Date Type Department Care Team (Late st Contact Info) Description 12/13/2024 Telephone [facility] Speech Language Pathology - [facility] [address] [place] [address] Katy Dale CCC-WATER SOFTENER SERVICE SUPERVISOR Social History Tobacco Use Types Packs/Day Years [...] Date Eder rded Speak language other than Brazilian at home Not on file 07/21/2023 Want [...] Miscellaneous Notes * Telephone Encounter - SPARKLE MalloyWATER SOFTENER SERVICE SUPERVISOR - 12/13/2024 4:29 PM EDT Speech Language Pathology Telephone Follow Up Patient Name: Arturo Corbin Today's Date: 12/13/2024 Reason for Telephone Call: Pt called to cancel appointment due to not feeling well. Pt plans to call to reschedule when he is feeling better. Electronically signed by Katy Dale MA CCC-WATER SOFTENER SERVICE SUPERVISOR- 12/13/2024 - 4:29 PM EST documented in this encounter Plan of Treatment Not on file documented as of this encounter Visit Diagnoses Not on filedocumented in this encounter
--- OUTSIDE RECORDS SUMMARY | 2025-01-16 11:23 | XMS_ITS | Referral Summary ---
Author Organization [employer] ([place], [place], [place], [place]) Address [address] [place] [address] Care Team Providers Care Weaver Needle Loom Name Role Phone Unavailable Primary Care Provider Unavailabl e Encounters Date Type Department Care Team Description 01/06/2025 Outside Orders [facility] Outpatient Physical Therapy [address] [place] [address] Ivette Palacios DO Postconcussion syndrome (Primary Dx) 12/13/20[address] Telephone [facility] Speech Language Pathology - [address] [address] Katy Dale CCC-FENCE GATE ASSEMBLER 12/01/2024 2:00 PM EDT Treatment [facility] Speech Language Pathology - [address] [address] Ivette Palacios DO Lankster, Michelle P, CCC-FENCE GATE ASSEMBLER Cognitive communication deficit (Primary Dx); Attention and concentration deficit; Post concussion syndrome 11/22/2024 Telephone [facility] Speech Language Pathology - [address] [address] Katy Dale CCC-FENCE GATE ASSEMBLER 11/14/2024 2:00 PM EDT Treatment [facility] Speech Language Pathology - [address] [address] Ivette Palacios DO Lankster, Michelle P, CCC-FENCE GATE ASSEMBLER Cognitive communication deficit (Primary Dx); Attention and concentration deficit; Post concussion syndrome 11/09/2024 12:00 PM EDT Treatment [facility] Speech Language Pathology - [address] [address] Ivette Palacios DO Lankster, Michelle P, CCC-FENCE GATE ASSEMBLER Cognitive communication deficit (Primary Dx); Attention and concentration deficit; Post concussion syndrome 11/02/2024 3:00 PM EDT Treatment [facility] Speech Language Pathology - [address] [address] Ivette Palacios DO Lankster, Michelle P, CCC-FENCE GATE ASSEMBLER Cognitive communication deficit (Primary Dx); Attention and concentration deficit; Post concussion syndrome 10/26/2024 3:00 PM EDT Treatment [facility] Speech Language Pathology - [address] [address] Ivette Palacios DO Lankster, Michelle P, CCC-FENCE GATE ASSEMBLER Cognitive communication deficit (Primary Dx); Post concussion syndrome; Attention and concentration deficit 10/20/2024 1:00 PM EDT Treatment [facility] Speech Language Pathology - [address] [address] Ivette Palacios DO Lankster, Michelle P, CCC-FENCE GATE ASSEMBLER Post concussion syndrome from Last 3 Months Social History Tobacco [...] Orientation Not on file Plan of Treatment Not on file Insurance [facility] MEDICARE PART A B [facility]
== END 2025-01-16 23:59 | disposition home or self-care (01) ==
LOC: RT 11:17
PROVIDERS: PCP Family Medicine; Visit Provider Internal Medicine
DX: I08.8 Other rheumatic multiple valve diseases (principal); I11.9 Hypertensive heart disease without heart failure; I77.810 Thoracic aortic ectasia; I49.3 Ventricular premature depolarization; R94.31 Abnormal electrocardiogram [ECG] [EKG]
CPT/HCPCS: 93306

== ENCOUNTER 2025-01-17 12:30 | Outpatient (CLI) | payer MEDICARE, BC, SELFPAY ==
--- OUTSIDE RECORDS SUMMARY | 2024-12-01 14:00 | XMS_ITS | Encounter Summary ---
Author Organization [employer] ([place], [place], [place], [place]) Address [address] [place] [address] Care Team Providers Care Machine Preservative Filler Name Role Phone Unavailable Primary Care Provider Unavailabl e Reason for Visit * Speech Therapy (Routine) - Authorized Specialty Diagnoses / Procedures Referred By Contac t Referred To Contact Speech Pathology / Speech Therapy Diagnoses Post concussion syndrome Ivette Palacios, DO [address] [place], [place] [id number] Phone: tel: fax: Katy Dale, CCC-RADAR TESTER Referral ID Status Reason Start Date Expiration Date V isits Requested Visits Authorized [id number] Authorized 08/31/2024 09/11/2025 99 99 Encounter Details Date Type Department Care Team (Late st Contact Info) Description 12/01/2024 2:00 PM EDT Treatment [facility] Speech Language Pathology - [facility] [address] [place] [address] [phone] Ivette Palacios, DO [facility] [place] [address] Katy Dale, CCC-RADAR TESTER Cognitive communication deficit (Primary Dx); Attention and [...] Date Eder rded Speak language other than Thai at home Not on file 07/21/2023 Want [...] this encounter Progress Notes * Katy Dale, THOMAS-RADAR TESTER - 12/01/2024 2:00 PM EDT Images from the original note were not included. Speech Therapy Reevaluation/Plan of Care of Revision Outpatient Daily Treatment Note Cognition Patient Name:Arturo Fajardo Referring MD:Ivette Palacios,* Date of :1950 Age: 74 y.o. Today: 12/01/2024 Time in/out:[id number] Length of Treatment: 14-Subpajfaiogj-rglowgku Treatment Session Number: 10/06 Pain: No pain c/o Subjective Arrived with . Upset re: RADAR TESTER documentation in EMR. Pt would like to continue with therapy despite upset re: RADAR TESTER documentation in EPIC. Pt voiced concern re: validity of the information documented. He mentioned a desire for RADAR TESTER to remove/edit previous documentation. RADAR TESTER explained information is protected an viewable only by pt and medical providers with access to the system. Pt voiced concern about documentation systems being accessed or hacked resulting in information available to others outside of the system. Pt mentioned interest in speaking to management in the [facility] System re: documentation. 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 RADAR TESTER Discharge Planning: ongoing speech language pathology services are indicated for cognitive communication deficits This will serve as a discharge statement if patient is discharged before further visits. Electronically signed by Katy Dale MA CCC-RADAR TESTER- 12/01/2024 - 2006 PM EST Outpatient Certification: [...]
--- OUTSIDE RECORDS SUMMARY | 2024-12-28 15:30 | XMS_ITS | Encounter Summary ---
Author Organization [facility] Address [address] [place] [address] Care Team Providers Care Show Girl Name Role Phone Mike Otoole MD Primary Care Provider [phone] Reason for Visit * Reason Comments Follow-up 6 month recheck- Acq uired hallux rigidus of right foot Encounter Details Date Type Department Care Team (Late st Contact Info) Description 12/28/2024 3:30 PM EDT Office Visit [facility] [address] [place] [address] Sarah Gonzalez MD [address] [place] [address] Acquired hallux rigidus of right foot (Primary [...] atrophy, etc), time out was called, the [id number] MTPJ was prepped and using sterile technique [...] called to verify the correctpatient, procedure, equipment, systems support engineer and site/side marked as required. Patient was prepped and draped in the usual sterile fashion. documented in this encounter Plan of Treatment Upcoming Encounters Date Type Department Care Team (Late st Contact Info) Description 06/28/2025 3:30 PM EDT Office Visit [facility] [address] [address] Sarah Gonzalez MD [address] [address] documented as of this encounter Procedures Procedure Name Priority Date/Time Associated Diagnosis Comments [place] ARTHROCENTESIS ASPIR&/INJ SMALL JT/BURSA W/O US Routine 12/28/2024 3:54 PM EDT Acquired hallux rigidus of right foot XR FOOT 2 VW RIGHT Routine 12/28/2024 3: 46 PM EDT Acquired hallux rigidus of right foot documented in this encounter Results * [place] ARTHROCENTESIS ASPIR&/INJ SMALL JT/BURSA W/O US (12/28/2024 [...] to verify the correct patient, procedure, equipment, systems support engineer and site/side marked as required. Patient was [...] Right documented in this encounter Care Teams Show Girl Relationship Specialty Start Date End Date Mike Otoole MD [address] [address] PCP - General Family Medicine 10/06/22 documented as of this encounter
--- NOTE | 2025-01-17 | CA_ITS ---
APPROVED REPORT Exam: Exercise Treadmill Technologist: Rose Waldrop Stress Nurse: Leydi GALLARDO, RN Ht: 6 ft 0 in Wt: 200 lbs BSA: 2.13 m2 HR: 64 bpm BP: 174/88 mmHg Indications: Rule out ischemia, Abnormal ECG, Fatigue Stress Test Details Test: Exercise stress testing was performed using a Niall protocol. HR Resting HR: 64 bpm Max Heart Rate (APMHR): 148.560368 bpm Max HR Achieved: 134 bpm Target HR (85% APMHR): 125.874237 bpm % of APMHR: 90.54 Recovery HR: 76 bpm BP Resting BP: 174.0/88.0 mmHg Max BP: 191.0/89.0 mmHg Recovery BP: 161.0/85.0 mmHg ECG Stress ECG Conclusion Lungs clear to auscultation prior to start. Staff x1 assisted patient on treadmill Symptoms: Fatigue Arrhythmias/Ectopy: PVC/PAC ST-T Changes: less than 0.[address] segment changes. Electronically signed by : Gladys Kong MD 01/18/2025 12:23:59
--- NOTE | 2025-01-17 12:30 | NM_ITS ---
APPROVED REPORT Exam: Nuclear Stress Test Indication: abn ECG Patient Location: Outpatient Stress Tech: Rose Waldrop [place] Tech:Anita Washington LUIS DANIELT, RT (R)(N) Ht: 5 ft 10 in Wt: 199 lbs HR: 65 bpm BP: 174/88 mmHg BSA: 2.08 m2 TID: 1.15 BMI: 28.5 History: abn ECG Procedure: Patient exercised on Niall protocol 4:21 minutes and sec, resting heart rate 65 bpm, resting blood pressure 174/88 mmHg, with exercise maximum heart rate achived was 134 bpm which is 90 % of the maximum predicted heart rate and blood pressure was 191/89 mmHg. Test was stopped due to fatigue. Patient denied any complaint of chest pain. Patient has average exercise capacity, achieved 7.1 METs of workload on treadmill, the blood pressure response to exercise was normal. Cardiac Stress and Resting SPECT Images: Cardiac Stress and Resting SPECT images were obtained using technetium 99m Myoview 32.4 mCi stress and 10.08 mCi at rest. Resting and stress imaging in supine and prone positions demonstrate a large sized, moderate, fixed perfusion defect in the inferior LV wall. No evidence of reversible ischemia. Gated imaging demonstrates low normal global LV systolic function. LVEF is calculated at 50%. Conclusion: Large sized, moderate, fixed perfusion defect in the inferior LV wall. No evidence of reversible ischemia. Gated imaging demonstrates low normal global LV systolic function. LVEF is calculated at 50%. Electronically signed by : Gladys Kong MD 01/18/2025 13:06:53
--- OUTSIDE RECORDS SUMMARY | 2025-01-17 12:32 | XMS_ITS | Clinical Summary ---
Author Organization [facility] Address [address] [place] [address] Care Team Providers Care Casing Runner Name Role Phone Mike Otoole MD Primary Care Provider [phone] Source Comments This information has been disclosed [...] therelease of HIV test results or diagnoses. [id number] Encounters Date Type Department Care Team Description 12/28/2024 Orders Only [facility] PATIENT SERVICES [address] [place] [address] System, Provider Not In Concussion [...] 12/29 Insurance BLUE MEDICARE SUPPLEMENT Care Teams Casing Runner Relationship Specialty Start Date End Date Mike Otoole MD [address] [place] [address] [place] [address] PCP - General 01/04/25
--- OUTSIDE RECORDS SUMMARY | 2025-01-17 12:32 | XMS_ITS | Encounter Summary ---
Author Organization [facility] Address [address] [place] [address] Care Team Providers Care Screen Room Operator Name Role Phone Unavailable Primary Care Provider [...] release of HIV test results or diagnoses. [id number] Reason for Referral * Physician/DIRK (Routine) - Authorized Specialty Diagnoses / Procedures Referred By Contac t Referred To Contact Neurology Diagnoses Concussion with loss of consciousness, sequela [place], Provider Not In Referral ID Status Reason Start Date Expiration Date V isits Requested Visits Authorized [id number] Authorized 12/28/2024 06/26/2025 1 1 Encounter Details Date Type Department Care Team (Late st Contact Info) Description 12/28/2024 Orders Only [facility] PATIENT [facility] [address] [place], [place] [id number] System, Provider Not In Concussion with loss of consciousness, sequela ([facility] (Primary Dx) Social History Tobacco Use Types [...] Routine Concussion with loss of consciousness, sequela ([facility]) Ordered: 12/28/2024 documented as of this encounter Visit Diagnoses Diagnosis Concussion with loss of consciousness, sequela ([facility])- Primary documented in this encounter
--- OUTSIDE RECORDS SUMMARY | 2025-01-17 12:32 | XMS_ITS | Clinical Summary ---
Author Organization [facility] Address [address] [place] [address] Care Team Providers Care Tipple Operator Name Role Phone Mike Otoole MD Primary Care Provider [phone] Allergies No known active allergies Medications sildenafil [...] Description 12/28/2024 3:30 PM EDT Office Visit [facility] [address] [place] [address] Sarha Gonzalez MD Acquired hallux rigidus of right [...] Description 06/28/2025 3:30 PM EDT Office Visit [facility] [address] [place] [address] Sarah Gonzalez MD [address] [place] [address] Health Maintenance Due Date Last Done Comments [...] Procedure Name Priority Date/Time Associated Diagnosis Comments [place] ARTHROCENTESIS ASPIR&/INJ SMALL JT/BURSA W/O US Routine 12/28/2024 3:54 PM EDT Acquired hallux rigidus of right foot XR FOOT 2 VW RIGHT Routine 12/28/2024 3: 46 PM EDT Acquired hallux rigidus of right foot from Last 3 Months Results * [place] ARTHROCENTESIS ASPIR&/INJ SMALL JT/BURSA W/O US (12/28/2024 [...] to verify the correct patient, procedure, equipment, director of academic support and site/side marked as required. Patient was [...] Final Result from Last 3 Months Insurance [facility] MEDICARE A & B Care Teams Tipple Operator Relationship Specialty Start Date End Date Mike Otoole MD [address] [place], [place] [address] [place] [address] PCP - General Family Medicine 10/06/22
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
--- OUTSIDE RECORDS SUMMARY | 2025-01-17 12:33 | XMS_ITS | Encounter Summary ---
Author Organization [facility] Address [address] [place] [address] Care Team Providers Care Sales And Management Trainee Name Role Phone Mike Otoole MD Primary Care Provider [phone] Encounter Details Date Type Department Care Team [...] Description 06/28/2025 3:30 PM EDT Office Visit [facility] [address] [id number] Sarah Gonzalez MD [address] [phone] documented as of this encounter Visit Diagnoses Not on filedocumented in this encounter Care Teams Sales And Management Trainee Relationship Specialty Start Date End Date Mike Otoole MD [address] [address] PCP - General Family Medicine 10/06/22 documented as of this encounter
--- OUTSIDE RECORDS SUMMARY | 2025-01-17 12:33 | XMS_ITS | Clinical Summary ---
Author Organization [facility] Address [address] [place] [id number] Care Team Providers Care Bowling Alley Manager Name Role Phone Mike Otoole MD Primary Care Provider + [phone] Source Comments [facility] is fully rolled out with thefollowing exceptions:General Clinical Research [facility] Encounters Date Type Department Care Team Description 12/07/2024 Telephone [facility] Division of Pediatric Ophthalmology [address] [place] [phone] Yazmin Mello, COT Referrals from Last [...] topic Insurance GUMARO ROBERTSON NON-TRADITIONAL Care Teams Bowling Alley Manager Relationship Specialty Start Date End Date Mike Otoole MD [address] [place] [id number] PCP - General External Family Practice 10/31/24
--- OUTSIDE RECORDS SUMMARY | 2025-01-17 12:33 | XMS_ITS | Encounter Summary ---
Author Organization [facility] ([place], [place], [place], [place]) Address [address] [place] [address] Care Team Providers Care Bar Porter Name Role Phone Unavailable Primary Care Provider Unavailabl e Reason for Referral * Speech Therapy (Routine) - Open Specialty Diagnoses / Procedures Referred By Jennifer t Referred To Contact Speech Pathology / Speech Therapy Diagnoses Postconcussion syndrome Ivette Palacios DO [address] [place] [address] Phone: tel: fax: Katy Dale [facility]-INFORMATION MANAGER Referral ID Status Reason Start Date Expiration Date Visits Re quested Visits Authorized [id number] Open 01/06/2025 01/06/2026 1 1 Encounter Details Date Type Department Care Team (Latest Contact Info) Description 01/06/2025 Outside Orders [facility] Outpatient Physical Therapy [address] [place] [address] [place] [phone] Ivette Palacios DO [address] [place] [address] Postconcussion syndrome (Primary Dx) Social History Tobacco [...] Date Eder rded Speak language other than Stateless at home Not on file 07/21/2023 Want [...]
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
--- OUTSIDE RECORDS SUMMARY | 2025-01-17 12:33 | XMS_ITS | Clinical Summary ---
Author Organization [id number] ([place], [place], [place], [place]) Address [address] [place] [address] Care Team Providers Care Reports Developer Name Role Phone Unavailable Primary Care Provider Unavailabl e Encounters Date Type Department Care Team Description 01/06/2025 Outside Orders [facility] Outpatient Physical Therapy [address] [place] [address] Ivette Palacios DO Postconcussion syndrome (Primary Dx) 12/13/2024 Telephone [facility] Speech Language Pathology - [address] [address] Katy Dale CCC-HAND TIER 12/01/2024 2:00 PM EDT Treatment [facility] Speech Language Pathology - [address] [address] Ivette Palacios DO Lankster, Michelle P, CCC-HAND TIER Cognitive communication deficit (Primary Dx); Attention and concentration deficit; Post concussion syndrome 11/22/2024 Telephone [facility] Speech Language Pathology - [address] [address] Katy Dale CCC-HAND TIER 11/14/2024 2:00 PM EDT Treatment [facility] Speech Language Pathology - [address] [address] Ivette Palacios DO Lankster, Michelle P, CCC-HAND TIER Cognitive communication deficit (Primary Dx); Attention and concentration deficit; Post concussion syndrome 11/09/2024 12:00 PM EDT Treatment [facility] Speech Language Pathology - [address] [address] Ivette Palacios DO Lankster, Michelle P, CCC-HAND TIER Cognitive communication deficit (Primary Dx); Attention and concentration deficit; Post concussion syndrome 11/02/2024 3:00 PM EDT Treatment [facility] Speech Language Pathology - [address] [address] Ivette Palacios DO Lankster, Michelle P, CCC-HAND TIER Cognitive communication deficit (Primary Dx); Attention and concentration deficit; Post concussion syndrome 10/26/2024 3:00 PM EDT Treatment [facility] Speech Language Pathology - [address] [address] Ivette Palacios DO Lankster, Michelle P, CCC-HAND TIER Cognitive communication deficit (Primary Dx); Post concussion syndrome; Attention and concentration deficit 10/20/2024 1:00 PM EDT Treatment [facility] Speech Language Pathology - [address] [address] Ivette Palacios DO Lankster, Michelle P, CCC-HAND TIER Post concussion syndrome from Last 3 Months [...] Date Eder rded Speak language other than Yemeni at home Not on file 07/21/2023 Want [...] Pneumococcal 50+ years (2 of 2 - PCV20 or PCV21) 03/2803/28/2018 Medicare Initial AWV [id number] 12/30/2023 Falls Risk Screening 03/30/2024 COVID-19 VACCINE ( - season) 2024 Influenza Vaccine (#1) 2024 01/06/2018 Respiratory Syncytial Virus (RSV) Adult or (1 - 1-dose 75+ series) 01/22/2027 Insurance [facility] MEDICARE PART A B [facility] SUPPL
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
--- OUTSIDE RECORDS SUMMARY | 2025-01-17 12:33 | XMS_ITS | Encounter Summary ---
Author Organization [employer] ([place], [place], [place], [place]) Address [address] [place] [address] Care Team Providers Care Passenger Relations Representative Name Role Phone Unavailable Primary Care Provider Unavailabl e Encounter Details Date Type Department Care Team (Late st Contact Info) Description 12/13/2024 Telephone [facility] Speech Language Pathology - [address] [address] Katy Dale CCC-FISH HATCHERY SUPERVISOR Social History Tobacco Use Types Packs/Day [...] Date Eder rded Speak language other than [place] at home Not on file 07/21/2023 Want [...] Miscellaneous Notes * Telephone Encounter - SPARKLE MalloyFISH HATCHERY SUPERVISOR - 12/13/2024 4:29 PM EDT Speech Language Pathology Telephone Follow Up Patient Name: Arturo Corbin Today's Date: 12/13/2024 Reason for Telephone Call: Pt called to cancel appointment due to not feeling well. Pt plans to call to reschedule when he is feeling better. Electronically signed by Katy Dale MA CCC-FISH HATCHERY SUPERVISOR- 12/13/2024 - 4:29 PM EST documented in this encounter Plan of Treatment Not on file documented as of this encounter Visit Diagnoses Not on filedocumented in this encounter
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
--- OUTSIDE RECORDS SUMMARY | 2025-01-17 12:33 | XMS_ITS | Referral Summary ---
Author Organization [employer] ([place], [place], [place], [place]) Address [address] [place] [address] Care Team Providers Care Leather Belt Shaper Name Role Phone Unavailable Primary Care Provider Unavailabl e Encounters Date Type Department Care Team Description 01/06/2025 Outside Orders [facility] Outpatient Physical Therapy [address] [facility] [address] [place] [address] Ivette Palacios DO Postconcussion syndrome (Primary Dx) 12/13/2024 Telephone [facility] Speech Language Pathology - [address] [address] Katy Dale CCC-CHILD AND FAMILY SERVICES WORKER 12/01/2024 2:00 PM EDT Treatment [facility] Speech Language Pathology - [address] [address] Ivette Palacios DO Lankster, Michelle P, CCC-CHILD AND FAMILY SERVICES WORKER Cognitive communication deficit (Primary Dx); Attention and concentration deficit; Post concussion syndrome 11/22/2024 Telephone [facility] Speech Language Pathology - [address] [address] Katy Dale CCC-CHILD AND FAMILY SERVICES WORKER 11/14/2024 2:00 PM EDT Treatment [facility] Speech Language Pathology - [address] [address] Ivette Palacios DO Lankster, Michelle P, CCC-CHILD AND FAMILY SERVICES WORKER Cognitive communication deficit (Primary Dx); Attention and concentration deficit; Post concussion syndrome 11/09/2024 12:00 PM EDT Treatment [facility] Speech Language Pathology - [address] [address] Ivette Palacios DO Lankster, Michelle P, CCC-CHILD AND FAMILY SERVICES WORKER Cognitive communication deficit (Primary Dx); Attention and concentration deficit; Post concussion syndrome 11/02/2024 3:00 PM EDT Treatment [facility] Speech Language Pathology - [address] [address] Ivette Palacios DO Lankster, Michelle P, CCC-CHILD AND FAMILY SERVICES WORKER Cognitive communication deficit (Primary Dx); Attention and concentration deficit; Post concussion syndrome 10/26/2024 3:00 PM EDT Treatment [facility] Speech Language Pathology - [address] [address] Ivette Palacios DO Lankster, Michelle P, CCC-CHILD AND FAMILY SERVICES WORKER Cognitive communication deficit (Primary Dx); Post concussion syndrome; Attention and concentration deficit 10/20/2024 1:00 PM EDT Treatment [facility] Speech Language Pathology - [address] [address] Ivette Palacios DO Lankster, Michelle P, CCC-CHILD AND FAMILY SERVICES WORKER Post concussion syndrome from Last 3 Months [...] Date Eder rded Speak language other than [place] at home Not on file 07/21/2023 Want [...] Plan of Treatment Not on file Insurance [facility]IC[facility] PART [facility] B [facility]
[2025-01-17 14:00] VITALS: BP 174/88; BP 191/89; PULSE 64; RESP 14
[2025-01-17] MEDS: ISOTOPE MYOVIEW (PER STUDY) 1 DOSE IV (14:20)
[2025-01-17] MEDS: SODIUM CHLORIDE 0.9% 10ML SYR (RAD ONLY) 10 ML IV ×2 (14:20)
== END 2025-01-17 23:59 | disposition home or self-care (01) ==
LOC: RAD 12:31
PROVIDERS: PCP Family Medicine; Visit Provider Internal Medicine
DX: I49.3 Ventricular premature depolarization (principal); I49.1 Atrial premature depolarization; R94.39 Abnormal result of other cardiovascular function study; R94.31 Abnormal electrocardiogram [ECG] [EKG]; I10 Essential (primary) hypertension; R53.83 Other fatigue
CPT/HCPCS: 78452; 93017; 93018; A9502

== ENCOUNTER 2025-02-06 10:03 | Day surgery (SDC) | payer MEDICARE, BC, SELFPAY ==
[2025-02-06] VITALS (9 sets, daily range): BP systolic 113–154; BP diastolic 60–87; PULSE 62–86; RESP 20; O2SAT 92–99; BMI 27.3
--- NOTE | 2025-02-06 07:18 | IR_ITS ---
APPROVED REPORT Patient Location: Outpatient PROCEDURES Left heart catheterization Left ventriculogram Selective coronary angiogram INDICATION Abnormal Myoview, Angina pectoris Informed consent was obtained prior to the procedure. COMPLICATIONS NONE Estimated Blood Loss: LESS THAN 10 ML TECHNIQUE One percent lidocaine used to anesthetize the right anterior aspect of the wrist. The right radial artery was accessed via the Seldinger technique. A 6 Mongolian sheath was placed in the right radial artery. 2.5 mg of Verapamil, 800 mcg of nitroglycerin, 1mg Lidocaine and 5000 U Heparin were given through the arterial sheath. The JL3 catheter was also used to perform left heart catheterization, left ventriculogram and selective coronary angiogram. At the end of the procedure the sheath was removed good hemostasis was achieved using Traclet band, patient was transferred to the postop holding area in stable condition. ANGIOGRAPHIC RESULTS The left main artery Normal The left anterior descending artery Has proximal mid vessel 20% stenosis The circumflex artery Nondominant has proximal 30 to 40% concentric stenosis The right coronary artery Is dominant and has proximal and mid vessel 30% stenosis The QUIÑONEZ ventriculogram reveals Normal 60% The left ventricular end-diastolic pressure 15 mmHg IMPRESSION Mild to moderate coronary artery disease as described above Normal ejection fraction LVEDP PLAN 1. Medical management Electronically signed by : Obi Herrera MD 02/10/2025 15:03:21
[2025-02-06 10:22] LABS: Hematocrit 48.1 % (42.0-52.0); Hemoglobin 17.1 g/dL (14.1-18.0); Immature Granulocytes % 0.3 %; Mean Corpuscular HGB Conc 35.6 g/dL (31.8-35.4); Mean Corpuscular Hemoglobin 31.3 pg (27.0-31.2); Mean Corpuscular Volume 88.1 fl (80-94); Nucleated Red Blood Cells % 0 %; Platelet Count 198 K/mm3 (142-424); Red Blood Count 5.46 M/mm3 (4.60-6.20); Red Cell Distribution Width-SD 38.3 fL; White Blood Count 6.8 K/mm3 (4.8-10.8)
[2025-02-06 10:39] LABS: Anion Gap 7.3 mEq/L (5-15); Blood Urea Nitrogen 16 mg/dl (9-20); Calcium 9.3 mg/dl (8.4-10.2); Carbon Dioxide 26 mmol/L (22.0-30.0); Chloride 94 mmol/L (98-107); Creatinine Clearance Estimated 83 mL/min (50-200); Creatinine,Serum 0.90 mg/dl (0.66-1.25); Estimated Glomerular Filt Rate 83 ml/min (>60); GFR (African American) 100 ML/MIN (>60); Glucose 102 mg/dl (74-100); Potassium 4.3 mmoL/L (3.5-5.1); Sodium 123 mmol/L (136-145)
[2025-02-06] MEDS: HEPARIN 1,000 UNITS/500ML NS (CATH LAB) 3000 UNIT IV (12:03)
[2025-02-06] MEDS: NITROGLYCERIN 800MCG/8ML SYR (CATH LAB) 800 MCG IA (12:03)
[2025-02-06] MEDS: HEPARIN 1,000 UNITS/ML 10ML VIAL (CATH LAB) 5000 UNIT IV (12:03)
[2025-02-06] MEDS: LIDOCAINE 1% 10ML MDV 10 ML IJ (12:03)
[2025-02-06] MEDS: VERAPAMIL 2.5MG/ML 2ML VIAL 2.5 MG IV (12:03)
[2025-02-06] MEDS: 0.9 % SODIUM CHLORIDE 500 ML 25 ML IV (12:04)
[2025-02-06] MEDS: MIDAZOLAM HCL 1MG/ML 5ML VIAL 1 MG IV (12:19)
[2025-02-06] MEDS: FENTANYL 100MCG/2ML VIAL 50 MCG IV (12:20)
[2025-02-06] MEDS: IOPAMIDOL-370 (76%);100ML BOTTLE 50 ML IV (15:21)
== END 2025-02-06 15:40 | disposition home or self-care (01) ==
LOC: CATHLAB 10:04
PROVIDERS: PCP Family Medicine; Visit Provider Internal Medicine
PROC: 4A023N7 Measurement of Cardiac Sampling and Pressure, Left Heart, Percutaneous Approach (ICD-10-PCS; CPT 93452; principal; 2025-02-06 11:45)
DX: I25.118 Atherosclerotic heart disease of native coronary artery with other forms of angina pectoris (principal); R94.39 Abnormal result of other cardiovascular function study; R94.31 Abnormal electrocardiogram [ECG] [EKG]; I10 Essential (primary) hypertension; R53.83 Other fatigue; N52.2 Drug-induced erectile dysfunction; I49.3 Ventricular premature depolarization; Z79.899 Other long term (current) drug therapy
CPT/HCPCS: 36415; 80048; 85025; 93458; 99152; C1725; C1769; J1200; J1644; J3010; J7040; Q9967